=== PATIENT | male | born 1935 | race Caucasian/White ===

== ENCOUNTER → 2016-07-18 | Outpatient (CLI) | payer MEDICARE | END | disposition home or self-care (01) | LOC: GMAM 11:56 | PROVIDERS: ATTEND Family Medicine | DX: I48.0 Paroxysmal atrial fibrillation (principal); N40.0 Benign prostatic hyperplasia without lower urinary tract symptoms | CPT/HCPCS: 80162; 84439; 84443; 87086; 87088; 87186; G0103 ==

== ENCOUNTER 2016-07-30 13:20 | Day surgery (SDC) | payer MEDICARE ==
[2016-07-30 13:07] VITALS: BP 159/72; TEMP 97.6; O2SAT 95
[~2016-07-30 13:20] MED LIST: LIDOCAINE 1% 50 ML VIAL INJ ONE; NEOMYCIN-BACITRACIN-POLYMYXIN 0.9 GM UD TOP ONE; SODIUM BICARBONATE VIAL 50 MEQ/50 ML VIAL ONE
--- NOTE | 2016-07-30 13:35 | OP ---
DATE OF PROCEDURE: 07/30/16 PREOPERATIVE DIAGNOSIS: 1. Ulcerated, nonhealing lesion, left posterior ear. POSTOPERATIVE DIAGNOSIS: 1. Ulcerated, nonhealing lesion, left posterior ear. PROCEDURE: 1. Excision of ulcerated, nonhealing, left posterior ear. SURGEON: Thomas Bianchi MD ANESTHESIA: Local infiltration of 1% lidocaine with bicarb. INDICATION: The patient is a 80-year-old male who presented to my office with a lesion noticed approximately three weeks ago that had been bleeding behind his left ear. There is no known injury. He was treated with antibiotics without resolution. He was brought to the Surgical Suite today for excision of same after the risks, benefits and alternatives to the procedure were discussed and accepted. FINDINGS: The ulceration was approximately 1 cm. There was some mass effect anterior to the ulceration and the total tissue excised was approximately 2 by 1.5 cm. It was marked posterior and superiorly with sutures. PROCEDURE: The patient was brought to the Surgical Suite and placed in supine position with the head slightly elevated. The left ear and posterior tissue around the ear were prepped with Betadine paint and draped. The incision was marked with a marking pen. Infiltration with anesthesia was then obtained with 1% lidocaine. The skin was incised with a sharp knife and dissection of the tissue was continued with sharp dissection and electrocautery. The specimen was then removed, marked with sutures, and sent for pathologic evaluation. The wound was irrigated with lidocaine. Hemostasis was obtained with electrocautery and the wound bed was cauterized until a dark eschar was obtained. Hemostasis was noted to be adequate. The wound was then dressed with triple antibiotic ointment, a 2 by 2 and a Band-Aid. The patient tolerated the procedure well. Estimated blood loss was approximately 10 to 20 mL. All sponge, needle and instrument counts were corrected. #[id number] [facility]
== END 2016-07-30 13:30 | disposition home or self-care (01) ==
LOC: AMB 13:20
PROVIDERS: ATTEND Surgery
DX: C44.219 Basal cell carcinoma of skin of left ear and external auricular canal (principal); I10 Essential (primary) hypertension; I48.0 Paroxysmal atrial fibrillation; M81.0 Age-related osteoporosis without current pathological fracture; E11.9 Type 2 diabetes mellitus without complications; I50.9 Heart failure, unspecified; I73.9 Peripheral vascular disease, unspecified; N40.0 Benign prostatic hyperplasia without lower urinary tract symptoms; Z88.2 Allergy status to sulfonamides; Z88.8 Allergy status to other drugs, medicaments and biological substances; Z87.891 Personal history of nicotine dependence; Z95.0 Presence of cardiac pacemaker; Z79.899 Other long term (current) drug therapy

== ENCOUNTER → 2016-08-08 | Outpatient (CLI) | payer MEDICARE | END | disposition home or self-care (01) | LOC: GMA 13:49 | PROVIDERS: ATTEND Nurse Practitioner Family | DX: T81.89XA Other complications of procedures, not elsewhere classified, initial encounter (principal) ==

== ENCOUNTER 2016-11-11 07:41 | Emergency (ER) | payer MEDICARE ==
--- NOTE | 2016-11-11 07:53 | ED.PDOC ---
History of Present Illness - General Chief Complaint: General Stated Complaint: nausea/vomiting Time Seen by Provider: 11/11/16 07:50 Source: patient Exam Limitations: no limitations Additional Information: Akira Espinoza 81 y/o male stated that he had onset of multiple episodes of vomiting early this morning accompanied by pressure like headache and sob; called up ems and on arrival just feeling nauseated.Denies diarrhea ,chest pains ,blurry .vision. - History of Present Illness Timing/Duration: 1-3 hours Severity: moderate Improving Factors: nothing Worsening Factors: nothing Associated Symptoms: loss of appetite Allergies/Adverse Reactions: Allergies Hydrochlorothiazide Allergy (Verified 07/29/16 12:39) Lisinopril Allergy (Verified 07/29/16 12:39) Omeprazole [From Prilosec] Allergy (Verified 07/29/16 12:39) Paroxetine [From Paxil] Allergy (Verified 07/14/14 02:50) Rivaroxaban [From Xarelto] Allergy (Verified 07/29/16 12:39) Sitagliptin [From Januvia] Allergy (Verified 07/29/16 12:39) Sulfa Drugs Allergy (Verified 07/14/14 02:50) Terazosin Allergy (Verified 07/29/16 12:39) Home Medications: Ambulatory Orders Finasteride 10 mg PO BEDTIME 05/12/12 Furosemide [Lasix] 20 mg PO BID 05/12/12 Metformin HCl 500 mg PO QID 05/12/12 Potassium Chloride [Potassium Chloride ER] 10 meq PO DAILY 05/12/12 Tamsulosin HCl 0.4 mg PO DAILY 05/12/12 Digoxin 0.125 mg PO BID 10/05/12 Cholecalciferol [Vitamin D3] 1,000 unit PO DAILY 05/23/15 Cranberry-Vitamin C-Vitamin E [Cranberry Plus Vitamin C] 1 cap PO DAILY HYDROcodone 10MG/APAP 325MG [[place] 10/325] 1 tab PO Q4H PRN 05/23/15 Pregabalin [Lyrica] 50 mg PO BEDTIME 11/11/16 Prochlorperazine Tab [Compazine Tab] 10 mg PO TID PRN #14 tab 11/11/16 Review of Systems - Review of Systems Constitutional: States: no symptoms reported EENTM: States: no symptoms reported Respiratory: States: see HPI, short of breath Cardiology: States: no symptoms reported Gastrointestinal/Abdominal: States: see HPI Genitourinary: States: no symptoms reported Musculoskeletal: States: no symptoms reported Skin: States: no symptoms reported Neurological: States: see HPI, numbness Endocrine: States: no symptoms reported Hematologic/Lymphatic: States: no symptoms reported Past Medical History (General) - Patient Medical History Hx Seizures: No Hx Stroke: No Hx Dementia: No Hx Asthma: No Hx of COPD: Yes - Lung CA Hx Cardiac Disorders: No Hx Congestive Heart Failure: No Hx Pacemaker: Yes Hx Hypertension: No Hx Thyroid Disease: No Hx Diabetes: Yes Hx Gastroesophageal Reflux: No Hx Renal Disease: No Hx Cancer: Yes - lung Hx of HIV: No Hx Hepatitis C: No Hx MRSA: No Hx Other PMH: Yes - pe Hx Other - free text: Rectal bleeding Surgical History: appendectomy, other - hip,back Other Surgeries:: colonoscopy/egd - Vaccination History Hx Tetanus, Diphtheria Vaccination: No Hx Influenza Vaccination: Yes Hx Pneumococcal Vaccination: Yes - Social History Hx Tobacco Use: No Hx Chewing Tobacco Use: No Hx Alcohol Use: No Hx Substance Use: No Hx Substance Use Treatment: No Hx Depression: No Hx Physical Abuse: No Hx Emotional Abuse: No Hx Suspected Abuse: No - Activities of Daily Living Patient Lives Alone: No - Grooming Ability: Independent Eating (Feeding) Ability: Independent Toileting Ability: Independent - Female History Patient : No Family Medical History - Family History Father Family History: No Known Living Status: Hx Family Hypertension: Yes - mother Hx Family Diabetes: Yes - several family member Physical Exam - Physical Exam General Appearance: Alert, No apparent distress Eye Exam: bilateral normal Ears, Nose, Throat: hearing grossly normal, normal ENT inspection, normal pharynx Neck: non-tender, full range of motion, supple, normal inspection Respiratory: chest non-tender, lungs clear, no respiratory distress Cardiovascular/Chest: normal peripheral pulses, no murmur, irregularly irregular Peripheral Pulses: radial,right: 2+, radial,left: 2+ Gastrointestinal/Abdominal: normal bowel sounds, non tender, soft, no organomegaly Back Exam: normal inspection, no CVA tenderness, no vertebral tenderness Extremity: normal range of motion, non-tender, pedal edema - 1+ Neurologic: no motor/sensory deficits, alert, normal mood/affect, oriented x 3 Skin Exam: normal color, warm/dry Lymphatic: no adenopathy Progress - Progress Progress: 11/11/16 08:30 Vital Signs - 8 hr 11/11/16 07:41 Temperature 100.1 F H Pulse Rate [ 93 H Left Radial] Respiratory 20 Rate Blood Pressure 146/87 [Left Arm] O2 Sat by Pulse 96 Oximetry 11/11/16 11:30 No further nausea/vomiting still with headache,head ct-no acute abnormalities; stable vital signs - Results/Orders Results/Orders: 11/11/16 08:00 EKG STAT 11/11/16 10:04 TROPONIN-I Stat Laboratory Results WBC 8.5 K/mm3 (4.8-10.8) 11/11/16 07:51 RBC 5.14 M/mm3 (4.70-6.10) 11/11/16 07:51 Hgb 14.4 gm/dL (14.0-18.0) 11/11/16 07:51 Hct 43.8 % (42.0-52.0) 11/11/16 07:51 MCV 85.3 fl (80.0-94.0) 11/11/16 07:51 MCH 28.0 pg (27.0-31.0) 11/11/16 07:51 MCHC 32.8 g/dL (33.0-37.0) L 11/11/16 07:51 RDW 16.1 % (11.5-14.5) H 11/11/16 07:51 Plt Count 150 K/mm3 (130-400) 11/11/16 07:51 MPV 7.4 fl (7.40-10.4) 11/11/16 07:51 Absolute Neuts (auto) 7.80 K/uL (1.8-6.8) H 11/11/16 07:51 Absolute Lymphs (auto) 0.40 K/uL (1.0-3.4) L 11/11/16 07:51 Absolute Monos (auto) 0.30 K/uL (0.2-0.8) 11/11/16 07:51 Absolute Eos (auto) 0.00 K/uL (0.0-0.4) 11/11/16 07:51 Absolute Basos (auto) 0.00 K/uL (0.0-0.1) 11/11/16 07:51 Neutrophils % 92.0 % (42.0-78.0) H 11/11/16 07:51 Lymphocytes % 4.3 % (20.0-50.0) L 11/11/16 07:51 Monocytes % 3.5 % (2.0-9.0) 11/11/16 07:51 Eosinophils % 0.1 % (1.0-5.0) L 11/11/16 07:51 Basophils % 0.1 % (0.0-2.0) 11/11/16 07:51 PT 13.9 SECONDS (9.4-12.5) H 11/11/16 07:51 INR 1.230 11/11/16 07:51 D-Dimer, Quantitative < 230 ng/mL (0-230) 11/11/16 07:30 Sodium 136 mmol/L (135-145) 11/11/16 07:51 Potassium 4.2 mmol/L (3.6-5.0) 11/11/16 07:51 Chloride 97 mmol/L (101-111) L 11/11/16 07:51 Carbon Dioxide 29 mmol/L (21-31) 11/11/16 07:51 Anion Gap 14.2 (12-18) 11/11/16 07:51 BUN 22 mg/dL (7-18) H 11/11/16 07:51 Creatinine 1.51 mg/dL (0.6-1.3) H 11/11/16 07:51 BUN/Creatinine Ratio 14.6 (10-20) 11/11/16 07:51 Random Glucose 176 mg/dL (70-105) H 11/11/16 07:51 Serum Osmolality 279.6 mOsm/L (275-295) 11/11/16 07:51 Calcium 9.3 mg/dL (8.4-10.2) 11/11/16 07:51 Total Bilirubin 1.1 mg/dL (0.2-1.0) H 11/11/16 07:51 AST 21 IU/L (10-42) 11/11/16 07:51 ALT 12 IU/L (10-60) 11/11/16 07:51 Alkaline Phosphatase 64 IU/L (42-121) 11/11/16 07:51 Creatine Kinase 29 IU/L (38-174) L 11/11/16 07:51 CK-MB (CK-2) 1.1 ng/mL (0.0-4.4) 11/11/16 07:51 CK-MB (CK-2) % Not Reportable 11/11/16 07:51 Troponin I 0.03 ng/mL (0.01-0.05) 11/11/16 07:51 B-Natriuretic Peptide 421.0 pg/ml (0-100) H* 11/11/16 07:30 Serum Total Protein 8.8 gm/dL (6.4-8.2) H 11/11/16 07:51 Albumin 4.7 g/dl (3.2-5.5) 11/11/16 07:51 Globulin 4.1 gm/dL (2.3-3.5) H 11/11/16 07:51 Albumin/Globulin Ratio 1.1 (1.1-1.9) 11/11/16 07:51 Lipase 17 U/L (22-51) L 11/11/16 07:52 Urine Color Yellow (Yellow) 11/11/16 08:38 Urine Appearance Clear (Clear) 11/11/16 08:38 Urine pH 8.5 (4.5-7.8) H 11/11/16 08:38 Ur Specific [place] 1.015 (1.005-1.030) 11/11/16 08:38 Urine Protein >=300 mg/dL H 11/11/16 08:38 Urine Glucose (UA) Negative mg/dL (Negative) 11/11/16 08:38 Urine Ketones Negative mg/dL (NEGATIVE) 11/11/16 08:38 Urine Blood Small (Negative) H 11/11/16 08:38 Urine Nitrite Negative 11/11/16 08:38 Urine Bilirubin Negative (NEGATIVE) 11/11/16 08:38 Urine Urobilinogen 0.2 mg/dL (0.2-1.0) 11/11/16 08:38 Ur Leukocyte Esterase Negative (Negative) 11/11/16 08:38 Urine RBC 3-5 /hpf H 11/11/16 08:38 Urine WBC 0 /hpf 11/11/16 08:38 Ur Epithelial Cells 3-5 /hpf 11/11/16 08:38 Urine Bacteria 0 06/13/17 08:38 Digoxin 2.0 ng/mL (1.0-2.0) 11/11/16 08:30 Abnormal Lab Results 11/11/16 11/11/16 11/11/16 07:30 07:51 07:51 MCHC 32.8 L RDW 16.1 H Absolute Neuts (auto) 7.80 H Absolute Lymphs (auto) 0.40 L Neutrophils % 92.0 H Lymphocytes % 4.3 L Eosinophils % 0.1 L PT Chloride 97 L BUN 22 H Creatinine 1.51 H Random Glucose 176 H Total Bilirubin 1.1 H Creatine Kinase 29 L B-Natriuretic Peptide 421.0 H* Serum Total Protein 8.8 H Globulin 4.1 H Lipase Urine pH Urine Protein Urine Blood Urine RBC 11/11/16 11/11/16 11/11/16 07:51 07:52 08:38 MCHC RDW Absolute Neuts (auto) Absolute Lymphs (auto) Neutrophils % Lymphocytes % Eosinophils % PT 13.9 H Chloride BUN Creatinine Random Glucose Total Bilirubin Creatine Kinase B-Natriuretic Peptide Serum Total Protein Globulin Lipase 17 L Urine pH 8.5 H Urine Protein >=300 H Urine Blood Small H Urine RBC 3-5 H Troponin #2 normal - EKG/XRAY/CT EKG: Atrial, Fibrillation Comments: ventricular rate- 83;W/pvc XRAY: abdomen - non specific CT Ordered: Yes - head-no acute abnormalities/radiologist Departure - Departure Clinical Impression: Nausea and vomiting in adult, Chest pain of unknown etiology, Renal insufficiency, mild Headache Qualifiers: Headache type: unspecified Headache chronicity pattern: unspecified pattern Intractability: not intractable Qualified Code(s): R51 - Headache Time of Disposition: 11:30 Disposition: Discharge to Home or Self Care Condition: Good Diet: low fat, low cholesterol, other - small frequent meal;avoid greasy,spicy and dairy foods until better Referrals: Pedro Frazier MD [Primary Care Provider] - 1-2 Weeks Prescriptions: Prochlorperazine Tab [Compazine Tab] 10 mg PO TID PRN #14 tab PRN Reason: Nausea Home Medications: Ambulatory Orders Finasteride 10 mg PO BEDTIME 05/12/12 Furosemide [Lasix] 20 mg PO BID 05/12/12 Metformin HCl 500 mg PO QID 05/12/12 Potassium Chloride [Potassium Chloride ER] 10 meq PO DAILY 05/12/12 Tamsulosin HCl 0.4 mg PO DAILY 05/12/12 Digoxin 0.125 mg PO BID 10/05/12 Cholecalciferol [Vitamin D3] 1,000 unit PO DAILY 05/23/15 Cranberry-Vitamin C-Vitamin E [Cranberry Plus Vitamin C] 1 cap PO DAILY HYDROcodone 10MG/APAP 325MG [[place] 10/325] 1 tab PO Q4H PRN 05/23/15 Pregabalin [Lyrica] 50 mg PO BEDTIME 11/11/16 Prochlorperazine Tab [Compazine Tab] 10 mg PO TID PRN #14 tab 11/11/16 Additional Instructions: RETURN TO EMERGENCY ROOM NEEDED;FOLLOW UP WITH YOUR MD 11/17/2016 call for appointment as needed
[2016-11-11] MEDS ORDERED: KETOROLAC TROMETHAMINE INJ 30 MG/ML VIAL IV ONE (08:11)
[2016-11-11] MEDS ORDERED: ONDANSETRON INJ 4 MG/2 ML VIAL IV ONE (08:11)
--- NOTE | 2016-11-11 08:38 | RAD ---
EXAM DESCRIPTION: Abdomen Flat Upright CLINICAL HISTORY: 81 years Male, nausea IMPRESSION: Nonspecific small bowel gas pattern. No free air noted. Compression screw is seen within the right proximal femur. Electronically signed by: Jack Pike MD 11/11/2016 8:38 AM CDT
--- NOTE | 2016-11-11 08:39 | RAD ---
EXAM DESCRIPTION: Chest,1 View CLINICAL HISTORY: 81 years Male, nausea IMPRESSION: Cardiomegaly. Pacing device noted. Chronic bronchopulmonary changes seen within bilateral lung bases with infiltrates versus small right pleural effusion. Likely bronchiectasis seen within the right upper lobe. Electronically signed by: Jack Pike MD 11/11/2016 8:39 AM CDT
--- NOTE | 2016-11-11 08:48 | CT ---
EXAM DESCRIPTION: Head CLINICAL HISTORY: Acute onset of a dysmorphic COMPARISON: None available TECHNIQUE: Multiple axial images of the head without contrast . This exam was performed according to our department minimal dose optimization program which includes automated exposure control, adjustment of mA and/or kV according to patient size and/or use of iterative reconstructed techniques. FINDINGS: There is no CT evidence of intracranial hemorrhage, mass effect, or acute cortical infarction. Involutional changes noted resulting in prominence of the sulci and ventricles. Minimal periventricular white matter disease is noted. There are no abnormal extra-axial fluid collections. Vascular structures are unremarkable. There is no acute calvarial defect. The visualized paranasal sinuses and the mastoids are clear. IMPRESSION: 1. No CT evidence of an acute intracranial abnormality. 2. Involutional changes noted on today's exam along with mild periventricular white matter disease. Electronically signed by: Jack Pike MD 11/11/2016 8:47 AM CDT
[2016-11-11] MEDS ORDERED: cefTRIAXone SODIUM 1 GM in SODIUM CHL 0.9% 50ML MIN-BAG+ 50 ML IVPB ONE (10:06)
[2016-11-11] MEDS ORDERED: cefTRIAXone SODIUM 1 GM VIAL ONE (10:37)
[2016-11-11] MEDS ORDERED: SODIUM CHL 0.9% 50ML MIN-BAG+ 50 ML IVPB ONE (10:37)
[2016-11-11] MEDS ORDERED: PROCHLORPERAZINE INJ 10 MG/2 ML VIAL IV ONE (11:18)
[2016-11-11] MEDS ORDERED: DEXAMETHASONE INJ 4 MG/ML VIAL IV ONE (11:19)
[2016-11-11] MEDS ORDERED: ACETAMINOPHEN W/COD #3 TAB 1 EA TAB PO ONE (11:20)
[2016-11-11 12:08] VITALS: BP 113/73; TEMP 100.2; O2SAT 99
== END 2016-11-11 11:58 | disposition home or self-care (01) ==
LOC: ER 07:41
DX: R11.2 Nausea with vomiting, unspecified (principal); R51 Headache; N28.9 Disorder of kidney and ureter, unspecified; I48.91 Unspecified atrial fibrillation; E11.9 Type 2 diabetes mellitus without complications; Z95.0 Presence of cardiac pacemaker; Z85.118 Personal history of other malignant neoplasm of bronchus and lung; Z79.899 Other long term (current) drug therapy; Z88.2 Allergy status to sulfonamides; Z88.8 Allergy status to other drugs, medicaments and biological substances
CPT/HCPCS: 36415; 70450; 71010; 74010; 80053; 80162; 81001; 82550; 82553; 83690; 83880; 84484; 85025; 85379; 85610; 93005; J0696; J0780; J1100; J1885; J2405; J7050

== ENCOUNTER → 2016-11-14 | Outpatient (CLI) | payer MEDICARE | END | disposition home or self-care (01) | LOC: GMAM 10:13 | PROVIDERS: ATTEND Family Medicine | DX: Z79.899 Other long term (current) drug therapy (principal); E55.9 Vitamin D deficiency, unspecified ==

== ENCOUNTER → 2016-11-27 | Outpatient (CLI) | payer MEDICARE | END | disposition home or self-care (01) | LOC: GMAM 11:29 | PROVIDERS: ATTEND Family Medicine | DX: Z79.899 Other long term (current) drug therapy (principal) ==

== ENCOUNTER → 2016-12-05 | Outpatient (CLI) | payer MEDICARE ==
--- NOTE | 2016-12-05 13:29 | US ---
EXAM DESCRIPTION: Venous Doppler sonogram left lower extremity CLINICAL HISTORY: Left lower extremity swelling. Assess for deep vein thrombosis COMPARISON: [None Available.] TECHNIQUE: Venous Doppler left lower extremity deep venous system from the common femoral vein to the calf veins FINDINGS: Normal venous flow with color Doppler. Normal compressibility. Normal augmentation of flow with compression maneuvers IMPRESSION: No deep vein thrombosis left lower extremity Electronically signed by: Pedro Dimas MD 12/05/2016 1:27 PM CDT
--- NOTE | 2016-12-05 13:36 | CT ---
EXAM DESCRIPTION: CT left foot and ankle CLINICAL HISTORY: Foot and ankle pain COMPARISON: None Available. TECHNIQUE: Noncontrast spiral CT with reformatted images. This exam was performed according to our departmental dose-optimization program, which includes automated exposure control, adjustment of the mA and/or kV according to patient size and/or use of iterative reconstruction technique. FINDINGS: Diffuse subcutaneous soft tissue edema and swelling, nonspecific No tenosynovitis or suspicion of acute tendon tear. Assess naviculare. Small os peroneum. No fracture or osteochondral lesion at the ankle. No advanced osteoarthritis ankle or subtalar. No osteochondral lesion subtalar, calcaneocuboid or talonavicular Naviculocuneiform arthrosis, dorsal navicular at the middle and lateral cuneiforms. Osteoarthritis of the dorsal medial aspect first tarsometatarsal joint, throughout the second and third tarsometatarsal joints mostly dorsally with a couple of tiny subchondral cysts. No metatarsal or phalangeal fracture. 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 Joint space narrowing with small marginal osteophytes. Large subchondral cyst in the metatarsal head about 8 mm Moderate-sized well-corticated plantar calcaneal spur with chronic middle bundle plantar fascial thickening. A focal dystrophic calcification in the mid plantar fascia. Calcaneal enthesophyte at the distal Achilles tendon insertion. 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
== END | disposition home or self-care (01) ==
LOC: RAD 12:39
PROVIDERS: ATTEND Family Medicine
DX: R60.9 Edema, unspecified (principal); M79.672 Pain in left foot

== ENCOUNTER → 2017-02-12 | Outpatient (CLI) | payer MEDICARE | END | disposition home or self-care (01) | LOC: GMAM 10:49 | PROVIDERS: ATTEND Family Medicine | DX: Z79.899 Other long term (current) drug therapy (principal); E55.9 Vitamin D deficiency, unspecified ==

== ENCOUNTER → 2017-02-16 | Outpatient (CLI) | payer MEDICARE | END | disposition home or self-care (01) | LOC: GMA 10:33 | PROVIDERS: ATTEND Physician Assistant | DX: Z79.899 Other long term (current) drug therapy (principal); R60.0 Localized edema; R06.02 Shortness of breath ==

== ENCOUNTER → 2017-03-12 | Outpatient (CLI) | payer MEDICARE | END | disposition home or self-care (01) | LOC: GMAM 10:41 | PROVIDERS: ATTEND Family Medicine | DX: R94.6 Abnormal results of thyroid function studies (principal) ==

== ENCOUNTER 2017-04-01 11:15 | Inpatient (IN) | payer MEDICARE ==
--- NOTE | 2017-04-01 13:28 | CT ---
EXAM DESCRIPTION: Abdomen/Pelvis w/wo Contrast CLINICAL HISTORY: 81-year-old, male, generalized abdominal pain. COMPARISON: Abdominal radiograph dated November 11, 2016 TECHNIQUE: CT of the abdomen and pelvis was with and without intravenous contrast. Multiple axial images and multiplanar reconstructions were generated. This exam was performed according to our departmental dose-optimization program, which includes automated exposure control, adjustment of the mA and/or kV according to patient size and/or use of iterative reconstruction technique. FINDINGS: Lung bases: There is a well marginated cyst measuring 8.8 x 4.7 x 2.4 cm (AP, W, CC) in the left lung base. Vasculature are seen along the peripheral aspect of the cystic lesion. Heart size is enlarged. A single cardiac pacemaker lead is present with distal tip projecting in the right ventricle. Solid organs: Multiple subcentimeter cystic lesions are seen throughout the liver. These are too small to adequately characterize, but are likely hepatic cysts. The the spleen and pancreas are unremarkable. The gallbladder is distended with gallbladder wall thickening and pericholecystic fluid and surrounding fatty stranding, concerning for acute cholecystitis. The common bile duct is mildly distended measuring 5 mm in diameter. Several cortical cysts are present bilaterally. Otherwise, bilateral kidneys show symmetric enhancement. No evidence for hydronephrosis. Bilateral ureters are decompressed. Gastrointestinal: Gastrointestinal tract show no evidence of obstruction. Numerous diverticuli demonstrated in the sigmoid colon and descending colon. There is some early surrounding fatty stranding adjacent the sigmoid colon diverticuli, concerning for early diverticulitis. This inflamed portion of the sigmoid colon situates above the urinary bladder dome. Appendix is not visualized. Small free fluid demonstrated along the right colic gutter. Vascular: Calcific atherosclerosis of the abdominal aorta and its major branches. No evidence for aneurysmal dilatation. Lymph nodes: Several punctate subcentimeter retroperitoneal lymph nodes are present, none of which are significantly enlarged by CT size criteria. These are nonspecific and are likely reactive nodes. Musculoskeletal and soft tissues: No destructive osseous lesions are present. Degenerative changes noted of the thoracolumbar spine. Compression screw and plate in the proximal right femur. Urinary bladder and pelvic organs: The urinary bladder is normal. IMPRESSION: 1. Significantly distended gallbladder with wall thickening and pericholecystic fluid, concerning for acute cholecystitis. Small amount of free fluid is present along the right pericolic gutter. Surgical consult is recommended. 2. Sigmoid diverticuli with surrounding fat stranding, concerning for acute diverticulitis. Findings were discovered at 1315 hours and discussed via telephone with Ms. Elisa Gregg RN, from Dr. Verna Ledesma's office. Dr. Ldeesma was not immediately available to take the phone call. Electronically signed by: Immanuel Rosales MD 04/01/2017 1:27 PM CDT
[2017-04-01] MEDS ORDERED: levoFLOXacin 500MG IV 500 MG in PREMIX BAG 1 BAG IVPB SCH ×2 (16:30→18:00)
[2017-04-01] MEDS ORDERED: SODIUM CHLORIDE 0.9% (FLUSH) 10 ML SYG IV PRN (16:36)
[2017-04-01] MEDS ORDERED: ALBUTEROL SULFATE 2.5 MG/3 ML VIAL NEB PRN (16:38)
--- NOTE | 2017-04-01 16:40 | HP ---
SUPERVISING PHYSICIAN: Jaguar Núñez M.D. CHIEF COMPLAINT: Abdominal pain with nausea and vomiting. HISTORY OF PRESENT ILLNESS: This is a 81 year-old male patient who has been having some right upper quadrant abdominal pain for several days. His abdomen was very tender to palpation and he actually had some vomiting times 3 yesterday and early this morning. He went to [facility] and saw LOYDA Bergman, and lab was done at that time as well as a CT of the abdomen. His WBCs were 11.1, hemoglobin 12.4, hematocrit 38.1, neutrophils 84.6% with sodium 135 and chloride 99, potassium 3.7, carbon dioxide 25, glucose 145. He also had a urinary tract infection on the urine at [facility]. He was sent for a CT scan. CT of the abdomen and pelvis per radiology interpretation shows significantly distended gallbladder with wall thickening and pericholecystic fluid concerning for acute cholecystitis, small amount of free fluid is present along the right pericolic gutter. Surgical consultation is recommended. Sigmoid diverticula with surrounding fat stranding concerning for acute diverticulitis. Dr. Frazier , the patient's primary care physician, called and asked to be directly admitted. He also called Dr. Bianchi and discussed his case with him. He was sent to the hospital for direct admission. Dr. Bianchi was consulted. Gallbladder ultrasound was performed and per radiology interpretation shows sonographic findings suggesting cholecystitis with an enlarged fatty liver. PAST MEDICAL HISTORY: 1. Acute renal insufficiency. 2. Benign prostatic hypertrophy. 3. Cervical neuropathy. 4. Chronic obstructive pulmonary disease. 5. History of lung cancer. 6. Hypertension. 7. Hyperlipidemia. 8. Hypothyroidism. 9. Osteoarthritis. 10. Osteoporosis. 11. Paroxysmal atrial fibrillation. 12. Supraventricular tachycardia. 13. Diabetes mellitus type 2. 14. Congestive heart failure with estimated ejection fraction of 35% from echo in 2016. 15. Diverticular abscess. PAST SURGICAL HISTORY: 1. Open reduction and internal fixation of right hip. 2. Back surgeries times 2. 3. Pacemaker placement. 4. Appendectomy as a child. ALLERGIES: PRILOSEC, SULFA, GABAPENTIN, JANUVIA, LISINOPRIL HYDROCHLOROTHIAZIDE , TERAZOSIN AND XARELTO. SOCIAL HISTORY: He is retired. He is . He has 2 children. He has a previous history of cigarette smoking and he quit in 1999. He also has a previous history of alcohol use but he quit several years ago. Denies any illicit drug use. REVIEW OF SYSTEMS: GENERAL: Positive for fatigue and negative for fever or weight changes. HEENT: Negative for ear pain, vision changes, sinus symptoms or sore throat. RESPIRATORY: Negative for coughing, wheezing or shortness of breath. CARDIAC: Negative for chest pain, tachycardia or palpitations. GASTROINTESTINAL: As per history of present illness. GENITOURINARY: Positive for polyuria. Negative for dysuria or hematuria. NEUROLOGIC: Negative for headaches, dizziness or seizures. PHYSICAL EXAMINATION: VITAL SIGNS: He is afebrile, heart rate 83, blood pressure 103/61, respiratory rate 16, O2 sat 93% on room air. GENERAL: This is a 81 year-old male patient who is lying in his hospital bed. He is in no acute distress. HEENT: Normocephalic and atraumatic. Oropharynx is clear. Oral mucous membranes are moist. NECK: Supple without mass. There is no jugular venous distention. RESPIRATORY: Essentially clear to auscultation bilaterally, somewhat diminished at the bases. CARDIOVASCULAR: Slightly irregular rhythm, regular rate. ABDOMEN: Soft. He is diffusely tender especially to the right upper quadrant and the epigastric region. There is no rebound tenderness. Bowel sounds are positive. EXTREMITIES: No cyanosis, clubbing or edema. NEUROLOGIC: He is awake, alert and oriented times three. LABORATORY: Labs and films are as per the history of present illness. ASSESSMENT: 1. Acute cholecystitis. 2. Right upper quadrant abdominal pain most likely secondary to #1. 3. History of diverticular disease and CT concerns for diverticulitis. 4. Congestive heart failure with an ejection fraction of 35% from last echo in 2016. 5. History of atrial fibrillation. 6. History of lung cancer. 7. Type 2 diabetes mellitus. 8. Chronic obstructive pulmonary disease. 9. Benign prostatic hypertrophy. 10. History of cardiac pacemaker insertion. 11. Osteoarthritis. 12. Hyperlipidemia. 13. Hypothyroidism. PLAN: We will admit the patient to the hospital. He will be NPO. Dr. Bianchi has been consulted. I have also done Accu-Cheks with sliding scale insulin. I will repeat his labs in the morning. Also do another abdominal x-ray. Will get a urine culture as well as blood cultures. He has been started on Flagyl and Levaquin. He has been placed on the cardiac technologist. He has signed the paperwork for a DNR. We will defer surgical issues to Dr. Bianchi. We will continue to monitor the patient closely and follow as needed. Dr. Núñez is the collaborating physician available for consultation. #[id number] [facility]
--- NOTE | 2017-04-01 16:49 | US ---
EXAM DESCRIPTION: Gall Bladder CLINICAL HISTORY: 81 years Male cholecystitis COMPARISON: CT abdomen and pelvis study from earlier in the day. TECHNIQUE: Transabdominal grayscale imaging performed to evaluate the right upper quadrant. FINDINGS: The gallbladder is distended with gallstones in the gallbladder with the largest measuring 1.15 cm. The gallbladder wall is thickened to 0.75 cm. The sonographic Kaur's sign is reported as positive. The common bile duct measures 0.56 cm. The liver measures 19.6 cm in length and appears echogenic. There are multiple hypoechoic lesions in the liver consistent with cysts. The largest measures 1.1 x 0.8 x 0.9 cm. The pancreas is not well-visualized. The aorta, IVC and right kidney were not specifically imaged. IMPRESSION: Sonographic findings suggesting cholecystitis. Enlarged fatty liver. Electronically signed by: Jesus Rosales MD 04/01/2017 4:48 PM CDT
[2017-04-01] MEDS ORDERED: DEXTROSE 50% 25 GM/50 ML SYG IV PRN (16:54)
[2017-04-01] MEDS ORDERED: GLUCAGON INJ 1 MG VIAL SUBCU PRN (16:54)
[2017-04-01] MEDS ORDERED: FAMOTIDINE IV PREMIX 20 MG in PREMIX BAG 1 BAG IVPB SCH (17:00)
[2017-04-01] MEDS ORDERED: IV SET AND CAP CHANGE INJ INJ SCH (17:00)
[2017-04-01] MEDS ORDERED: metroNIDAZOLE IV PREMIX 500MG 100 ML IVPB ONE (17:30)
--- NOTE | 2017-04-01 17:36 | CONS ---
DATE OF CONSULTATION: 04/01/17 HISTORY OF PRESENT ILLNESS: The patient is a 81 year-old male that is well known to me for multiple skin malignancies and I also cared for him when he had a diverticular abscess 8 years ago approximately. He developed nausea and vomiting last Alonzo night after eating oatmeal with butter and toast and butter. He threw up 3 times. He has had some abdominal pain but no fever or chills. He has noted no change in his bowel habits. He presented to Dr. Frazier who obtained a CT scan which revealed consistent with inflammation involving his sigmoid diverticular disease and his gallbladder. The patient is a diabetic. He has a history of congestive heart failure, chronic obstructive pulmonary disease and atrial fibrillation. We are uncertain how long it has been since he had his last colonoscopy. Laboratory examination revealed his white blood cell count was mildly elevated at 11 with 84% neutrophils. Liver function tests were within normal limits other than a total bilirubin of 1.2. He was admitted directly to the floor by Dr. Frazier and the hospitalist service. PAST MEDICAL HISTORY: 1. Significant history of heart disease and lung disease. 2. He has had multiple malignancies. 3. Diverticular abscess which was treated conservatively. There is no history of hepatitis or jaundice. CURRENT MEDICATIONS: Medication list is quite long. These are both in his medical record. ALLERGIES: HE HAS MULTIPLE DRUG ALLERGIES. THESE ARE BOTH IN HIS MEDICAL RECORD. FAMILY HISTORY: Positive for carcinoma of the colon both in his mother and his brother. There is also diabetes. SOCIAL HISTORY: The patient is retired. He lives here in [place] with his . He quit smoking after many years in 1999. He drinks minimally. REVIEW OF SYSTEMS: The patient specifically has noted no recent blood per rectum. No change in his bowel habits. No dark urine. No fever or chills. Otherwise his review of systems is unremarkable as associated with this episode of hospitalization. PHYSICAL EXAMINATION: VITAL SIGNS: Afebrile and normotensive. GENERAL: The patient is awake, alert, cooperative and in minimal acute distress. HEENT: Reveals the sclera to be nonicteric. Mucous membranes are moist. NECK: Without adenopathy. BACK: Without CVA tenderness. CHEST: He has equal breath sounds that are distant. HEART: Irregular rhythm. ABDOMEN: Soft, distended. There is tenderness in the right upper quadrant with some guarding. Bowel sounds are decreased. There is no tenderness in the left lower quadrant. No masses palpated. RECTAL: Examination is deferred. EXTREMITIES: Without clubbing, cyanosis or edema. LABORATORY: As noted, revealed a white count of 11,000 with 84% neutrophils, hemoglobin 12.4, 174,000 platelets. Potassium 3.7, creatinine is 1.28, glucose 145. Liver functions were all within normal limits other than the bilirubin of 1.2. Sodium 134. RADIOLOGY: CT scan was consistent with acute cholecystitis and cholelithiasis. There is fatty stranding adjacent to the sigmoid colon consistent with early diverticulitis. This is sitting on the urinary dome. Ultrasound of the gallbladder revealed the liver consistent with fatty infiltration of the liver and multiple stones, thickening of the gallbladder wall, pericholecystic fluid all consistent with acute cholecystitis. PLAN: The plan is to cover the patient with Levaquin and Flagyl treating both cholecystitis and possible diverticulitis. Await the results of the urinary culture and follow the patient expectantly due to his underlying health issues, timing of surgical intervention may be complicated and is pending at this time. #[id number] [facility]
[2017-04-01] MEDS: metroNIDAZOLE IV PREMIX 500MG 500 MG in PREMIX BAG 1 BAG IVPB SCH (17:50)
[2017-04-01] MEDS: KCL 20MEQ/D5NS 1,000 ML IVS PRN (17:51)
[2017-04-01] MEDS: INSULIN LISPRO 100 UNITS/ML PEN SUBCU SCH (18:34)
[2017-04-01] MEDS ORDERED: levoFLOXacin 500MG IV 100 ML IVPB ONE (19:11)
[2017-04-01] MEDS: levoFLOXacin 500MG IV 500 MG in PREMIX BAG 1 BAG IVPB SCH (19:32)
[2017-04-01] MEDS ORDERED: FAMOTIDINE IV PREMIX 50 ML IVPB ONE (19:49)
[2017-04-01] MEDS: ALBUTEROL SULFATE 2.5 MG/3 ML VIAL NEB SCH (19:50)
[2017-04-01] MEDS: HYDROmorphone HCL INJ 2 MG/ML VIAL IV PRN (20:42)
[2017-04-01] MEDS: FAMOTIDINE IV PREMIX 20 MG in PREMIX BAG 1 BAG IVPB SCH (20:50)
[2017-04-01] MEDS: DIGOXIN 0.125 MG TAB PO SCH (20:50)
[2017-04-02] MEDS ORDERED: metroNIDAZOLE IV PREMIX 500MG 100 ML IVPB ONE ×3 (00:13→16:43)
[2017-04-02] MEDS: INSULIN LISPRO 100 UNITS/ML PEN SUBCU SCH ×4 (00:21→21:06)
[2017-04-02] MEDS: HYDROmorphone HCL INJ 2 MG/ML VIAL IV PRN ×3 (00:25→23:21)
[2017-04-02] MEDS: metroNIDAZOLE IV PREMIX 500MG 500 MG in PREMIX BAG 1 BAG IVPB SCH ×3 (00:28→16:50)
[2017-04-02] MEDS ORDERED: KCL 20MEQ/D5 1/2NS 0 ML IVS ONE (03:53)
[2017-04-02] MEDS: KCL 20MEQ/D5NS 1,000 ML IVS PRN ×3 (03:57→23:27)
[2017-04-02] MEDS: ALBUTEROL SULFATE 2.5 MG/3 ML VIAL NEB SCH ×4 (07:28→20:15)
[2017-04-02] MEDS ORDERED: FAMOTIDINE IV PREMIX 50 ML IVPB ONE ×2 (08:36→20:57)
[2017-04-02] MEDS: DIGOXIN 0.125 MG TAB PO SCH ×2 (08:41→21:03)
--- NOTE | 2017-04-02 08:48 | RAD ---
EXAM DESCRIPTION: Chest,1 View CLINICAL HISTORY: 81 years Male, copd COMPARISON: November 11, 2016 TECHNIQUE: AP portable chest. FINDINGS: Chronic findings of advanced interstitial fibrosis are present similar to the previous. No confluent parenchymal consolidation. Mild cardiomegaly with at least mild vascular congestion not as prominent as the previous radiograph. Unipolar pacer unchanged since previous IMPRESSION: Cardiomegaly with vascular congestion Advanced chronic interstitial fibrosis Electronically signed by: Ishan Emanuel MD 04/02/2017 8:47 AM CDT
--- NOTE | 2017-04-02 08:51 | RAD ---
EXAM DESCRIPTION: Abdomen Flat Upright CLINICAL HISTORY: 81 years Male, abd pain COMPARISON: November 11, 2016 and April 01, 2017 FINDINGS: Supine and upright views of the abdomen show prominent fullness in the right upper quadrant. Correlating this with the CT from yesterday shows that the liver is prominent in size. The dilated inflamed gallbladder noted on the CT scan may be contributing. Bowel gas pattern unremarkable. Contrast media in the urinary bladder from the previous CT scan. IMPRESSION: Hepatomegaly/fullness right upper quadrant Electronically signed by: Ishan Emanuel MD 04/02/2017 8:49 AM CDT
[2017-04-02] MEDS: FAMOTIDINE IV PREMIX 20 MG in PREMIX BAG 1 BAG IVPB SCH ×2 (09:57→21:04)
[2017-04-02] MEDS ORDERED: MAGNESIUM HYDROXIDE 30 ML UD PO ONE (11:25)
--- NOTE | 2017-04-02 17:32 | PN ---
DATE: 04/02/17 SUPERVISING PHYSICIAN: Jagura Núñez M.D. SUBJECTIVE: The patient is sitting on the side of the bed. He has just had a large bowel movement. He no longer has any complaints of abdominal pain, chest pain, nausea or vomiting. OBJECTIVE: VITAL SIGNS: He is afebrile, heart rate 83, blood pressure 148/70, respiratory rate 16, O2 sat is 98% on room air. RESPIRATORY: Essentially clear to auscultation bilaterally. CARDIAC: Regular rate and rhythm. ABDOMEN: Soft, nondistended, non-tender. Bowel sounds are positive. EXTREMITIES: No cyanosis , clubbing or edema. NEUROLOGIC: He is awake, alert and oriented times three. LABORATORY: WBCs are 9.8 with hemoglobin 11.3, hematocrit 34.3, neutrophils have improved slightly to 82.4%. Chemistries are basically within normal limits with the exception of his glucose is slightly elevated at 164. Preliminary urine culture shows no growth after 24 hours and his preliminary blood cultures are negative to date. RADIOLOGY: Chest x-ray shows cardiomegaly with vascular congestion and advanced chronic interstitial fibrosis. Abdominal x-ray shows hepatomegaly/ fullness of the right upper quadrant. All other labs and films have been reviewed via the EMR. ASSESSMENT: 1. Acute cholecystitis. 2. Right upper quadrant abdominal pain most likely secondary to #1 that has improved. 3. History of diverticular disease and CT concerns for diverticulitis. 4. Congestive heart failure with an ejection fraction of 35% from last echo in 2016. 5. History of atrial fibrillation. 6. History of lung cancer. 7. Type 2 diabetes mellitus. 8. Chronic obstructive pulmonary disease. 9. Benign prostatic hypertrophy. 10. History of cardiac pacemaker insertion. 11. Osteoarthritis. 12. Hyperlipidemia. 13. Hypothyroidism. PLAN: We will continue present supportive care. I have spoken to Dr. Bianchi about his case and he has allowed him to have some ice chips and we will continue him on bowel rest overnight. He feels much better since he had a large bowel movement and I have ordered routine lab for in the morning. Dr. Bianchi and I will discuss his case at that time. I have also ordered physical therapy to make sure he is safe when he goes home. We will continue to monitor the patient closely and followup as needed. Dr. Núñez is the collaborating physician available for consultation. #[id number] [facility]
[2017-04-02] MEDS ORDERED: levoFLOXacin 500MG IV 100 ML IVPB ONE (20:21)
[2017-04-02] MEDS: levoFLOXacin 500MG IV 500 MG in PREMIX BAG 1 BAG IVPB SCH (21:03)
[2017-04-03] MEDS: INSULIN LISPRO 100 UNITS/ML PEN SUBCU SCH ×2 (00:30→06:17)
[2017-04-03] MEDS ORDERED: metroNIDAZOLE IV PREMIX 500MG 100 ML IVPB ONE ×2 (00:32→07:35)
[2017-04-03] MEDS: metroNIDAZOLE IV PREMIX 500MG 500 MG in PREMIX BAG 1 BAG IVPB SCH ×2 (00:36→07:39)
[2017-04-03] MEDS ORDERED: FAMOTIDINE IV PREMIX 50 ML IVPB ONE (07:36)
[2017-04-03] MEDS: HYDROmorphone HCL INJ 2 MG/ML VIAL IV PRN (07:39)
[2017-04-03] MEDS: ALBUTEROL SULFATE 2.5 MG/3 ML VIAL NEB SCH (08:08)
[2017-04-03] MEDS: FAMOTIDINE IV PREMIX 20 MG in PREMIX BAG 1 BAG IVPB SCH (09:43)
[2017-04-03] MEDS: DIGOXIN 0.125 MG TAB PO SCH (09:43)
[2017-04-03 10:42] VITALS: BP 148/78; TEMP 98.3; O2SAT 98
--- NOTE | 2017-04-06 13:32 | DS ---
SUPERVISING PHYSICIAN: Jaguar Núñez MD DISCHARGE DIAGNOSIS: 1. Acute cholecystitis. 2. Right upper quadrant abdominal pain most likely secondary to #1, improved. 3. History of diverticular disease and CT concerns for diverticulitis. 4. Congestive heart failure with an ejection fraction of 35% from last echo in 2016. 5. History of atrial fibrillation. 6. History of lung cancer. 7. Type 2 diabetes mellitus. 8. Chronic obstructive pulmonary disease. 9. Benign prostatic hypertrophy. 10. History of cardiac pacemaker insertion. 11. Osteoarthritis. 12. Hyperlipidemia. 13. Hypothyroidism. HISTORY OF PRESENT ILLNESS: This is a 81-year-old male patient who was been having some right upper quadrant abdominal pain for several days. His abdomen was very tender to palpation and he actually had some vomiting times 3 on the day prior to his admission. He went to [facility] and saw LOYDA Bergman, and lab was done at that time as well as a CT of the abdomen. His WBCs were 11.1, hemoglobin 12.4, hematocrit 38.1, neutrophils 84.6% with sodium 135 and chloride 99, potassium 3.7, carbon dioxide 25, glucose 145. He also had a urinary tract infection on his urinalysis at [facility]. He was sent to the hospital for a CT scan. CT of the abdomen and pelvis per radiologic interpretation showed significantly distended gallbladder with wall thickening and pericholecystic fluid concerning for acute cholecystitis, small amount of free fluid is present along the right pericolic gutter. Surgical consultation was recommended. Sigmoid diverticula with surrounding fat stranding concerning for acute diverticulitis. Dr. Frazier, the patient's primary care physician, called and asked the patient be directly admitted. Dr. Bianchi was also consulted and discussed his case. He was sent to the hospital for direct admission. Gallbladder ultrasound was performed and per radiologic interpretation shows sonographic findings suggesting cholecystitis with an enlarged fatty liver. HOSPITAL COURSE: Dr. Bianchi was consulted. Urine culture and blood cultures were done. He was started on Flagyl and Levaquin as well as given some bowel rest. The patient was extremely high risk as a surgical candidate, so medical treatment was advised. It is to be noted that he was quite constipated and received several doses of Milk of Magnesia and Dulcolax. After having a good bowel movement and several days of bowel rest as well as several days of IV antibiotics, the patient's condition improved. He had very little pain in the abdomen. He was able to tolerate his diet. His white count normalized to 5.1 with neutrophils of 74.7%. Electrolytes normalized. His cultures, both urine and blood, showed no growth after 48 hours. At this point, the patient could be discharged home on a no fat diet in stable condition. DISCHARGE PLAN: The patient will be discharged home in stable condition. He has a followup with Dr. Bianchi on 04/07/17 at 10:[address] Frazier on 04/08/17 at 8:45 AM. He is to continue his no fat diet. I have also given him 5 additional days of Levaquin and Flagyl. He is to increase his activity as tolerated. He is contact Dr. Bianchi's office, Dr. Frazier's office or return to the hospital for any further complications or problems. DISCHARGE MEDICATIONS: 1. Metformin. 2. Furosemide. 3. Potassium chloride. 4. Finasteride. 5. Tamsulosin. 6. Digoxin. 7. Hydrocodone. 8. Vitamin D3. 9. Cranberry Plus Vitamin C. 10. Zyloprim. 11. Levofloxacin. 12. Metronidazole. Dr. Núñez is the collaborating physician and available for consultation. #[id number] [facility]
== END 2017-04-03 11:10 | disposition home health service (06) | DRG 445 ==
LOC: CT 11:15 → UNDOADMIN 14:05 → MS 14:05
PROVIDERS: ADMIT Nurse Practitioner Acute Care; ATTEND Nurse Practitioner Acute Care
PROC: BW21YZZ Computerized Tomography (CT Scan) of Abdomen and Pelvis using Other Contrast (ICD-10-PCS; principal; 2017-04-01)
DX: K81.0 Acute cholecystitis (principal); K57.32 Diverticulitis of large intestine without perforation or abscess without bleeding; I50.9 Heart failure, unspecified; I48.91 Unspecified atrial fibrillation; E11.9 Type 2 diabetes mellitus without complications; J44.9 Chronic obstructive pulmonary disease, unspecified; N40.0 Benign prostatic hyperplasia without lower urinary tract symptoms; M19.90 Unspecified osteoarthritis, unspecified site; E78.5 Hyperlipidemia, unspecified; E03.9 Hypothyroidism, unspecified; K59.00 Constipation, unspecified; M81.0 Age-related osteoporosis without current pathological fracture; I48.0 Paroxysmal atrial fibrillation; I11.0 Hypertensive heart disease with heart failure; Z88.8 Allergy status to other drugs, medicaments and biological substances; Z95.0 Presence of cardiac pacemaker; Z85.118 Personal history of other malignant neoplasm of bronchus and lung; Z88.2 Allergy status to sulfonamides; Z87.891 Personal history of nicotine dependence

== ENCOUNTER → 2017-05-15 | Outpatient (CLI) | payer MEDICARE | LOC: GMAM 10:34 | PROVIDERS: ATTEND Family Medicine | DX: E55.9 Vitamin D deficiency, unspecified (principal); Z79.899 Other long term (current) drug therapy ==

== ENCOUNTER 2017-05-21 05:51 | Observation (INO) | payer MEDICARE, OTHER ==
--- NOTE | 2017-05-19 10:19 | RAD ---
EXAM DESCRIPTION: Chest,2 Views CLINICAL HISTORY: 81 years Male, surg 05/21/17 COMPARISON: 04/02/2017 IMPRESSION: The heart is enlarged, with central pulmonary vascular congestion. A single lead left chest wall cardiac device is again demonstrated. There are hazy perihilar and bibasilar interstitial and airspace opacities, with more confluent airspace consolidation in the right lower lung zone. Moderate right and small left pleural effusions. The findings may relate to CHF with interstitial and pulmonary edema versus multifocal pneumonia. No pneumothorax. No acute osseous abnormality. Electronically signed by: Jani Shay MD 05/19/2017 10:18 AM [facility]
[2017-05-21] MEDS ORDERED: ceFAZolin SODIUM 1 GM VIAL ONE (07:16)
[2017-05-21] MEDS ORDERED: SODIUM CHL 0.9% 100ML MINI-BAG 100 ML IVPB ONE (07:16)
[2017-05-21] MEDS ORDERED: LACTATED RINGERS 1,000 ML ONE ×2 (07:16→10:46)
[2017-05-21] MEDS ORDERED: ROCURONIUM BROMIDE 10 MG/ML VIAL ONE (07:18)
[2017-05-21] MEDS ORDERED: fentaNYL CITRATE INJ 50 MCG/ML AMP ONE (07:18)
[2017-05-21] MEDS ORDERED: BUPIVACAINE 0.25% W/EPI 50 ML VIAL INJ ONE (07:40)
[2017-05-21] MEDS ORDERED: HEPARIN SODIUM (PORCINE) 10,000 UNITS/ML VIAL ONE (07:40)
[2017-05-21] MEDS ORDERED: PROPOFOL 200 MG/20 ML VIAL IV ONE (10:00)
[2017-05-21] MEDS ORDERED: ATROPINE SULFATE 0.4 MG/ML 1ML VIAL IV ONE (10:00)
[2017-05-21] MEDS ORDERED: NEOSTIGMINE METHYLSULFATE 1 MG/ML ML IV ONE (10:00)
[2017-05-21] MEDS ORDERED: LIDOCAINE 1% 10 ML VIAL INJ ONE (10:00)
[2017-05-21] MEDS ORDERED: LEVALBUTEROL NEBS 1.25 MG/3 ML VIAL NEB ONE (12:28)
--- NOTE | 2017-05-21 12:41 | OP ---
DATE OF PROCEDURE: 05/21/17 PREOPERATIVE DIAGNOSIS: 1. Symptomatic cholelithiasis. 2. Fatty infiltration of the liver. POSTOPERATIVE DIAGNOSIS: 1. Symptomatic cholelithiasis. 2. Subacute cholecystitis. 3. Fatty infiltration of the liver. 4. Ascites. 5. Multiple medical diagnoses. PROCEDURE: 1. Laparoscopic cholecystectomy with intraoperative cholangiography using fluoroscopy. 2. Wedge biopsy, right lobe of the liver. SURGEON: Thomas Bianchi MD. MOTOR VEHICLE EMISSIONS INSPECTOR: None. ANESTHESIA: Local infiltration of 0.25% Marcaine with epinephrine and general endotracheal anesthesia. INDICATION: The patient is a 81-year-old male who has had significant pain in the right upper quadrant with radiation to the back and fatty food intolerance. He has multiple medical issues. He was seen by his boat tester who felt he was an appropriate candidate for general anesthesia. The patient was brought to the Surgical Suite today for cholecystectomy with cholangiography and wedge biopsy of the liver after the risks, benefits and alternatives to the procedure were discussed and accepted. FINDINGS: The liver was large and rigid. No obvious masses were identified. No gross changes of cirrhosis were identified. There was approximately 100 mL of straw colored ascites within the abdominal cavity, mainly around the liver. There were multiple adhesions to the gallbladder, both flimsy and some very dense, especially the duodenum up to the neck of the gallbladder. Intraoperative cholangiography revealed free flow into the duodenum eventually. Initially, there was some poor flow, but it eventually opened up and drained well. The cystic duct did enter into the right hepatic duct. No obvious filling defects or strictures were identified. No other obvious pathology was identified. DESCRIPTION OF PROCEDURE: After adequate general endotracheal anesthesia was obtained, the patient was prepped and draped in the usual sterile manner. The infraumbilical area was infiltrated with 0.25% Marcaine with epinephrine. A curvilinear incision was fashioned and carried down through the subcutaneous tissue to the midline fascia. Traction sutures were placed on either side of the midline. A small incision was made in the midline fascia. Makayla trocar was introduced under direct vision into the abdominal cavity and fixed in place with the 20 mL balloon. CO2 was then insufflated until a pressure of 12 mmHg was reached and the abdomen was tympanitic in all four quadrants. When this was done, the laparoscope was introduced. The abdomen was inspected with the previously noted findings. The gallbladder was grasped laterally and retracted laterally and anteriorly. The adhesions to the gallbladder were then taken down using blunt dissection and electrocautery. Eventually, we got down to where the duodenum was against the neck and with tedious dissection, it was quite difficult due to the firmness of the scar tissue, the cystic duct and cystic artery were identified. A small incision was made in the cystic duct and cholangiogram catheter was introduced through a separate stab wound and was clipped in place with a clamp. Cholangiograms were then taken using fluoroscopy which revealed that the cystic duct entered the right hepatic duct and there was good flow into the duodenum with no stricture identified. When this was done, the cystic duct catheter was removed. The cystic duct was hemoclipped three times distally and divided between the hemoclips. The cystic artery was identified, clipped and divided. With tedious dissection, eventually the gallbladder was then dissected free from the jaleel hepatis and then dissected laterally from the gallbladder bed of the liver. The gallbladder was placed in an EndoCatch bag and removed from the abdomen in the usual manner under direct vision through the infraumbilical port site. When this was done, the subhepatic space was inspected. Hemostasis was obtained using electrocautery and clips. When this was done and hemostasis was noted to be adequate, the abdomen was irrigated copiously with saline. All clots were removed. The effluent was noted to be clear and there was good hemostasis. At this point, the wedge biopsy of the right lobe of the liver was obtained approximately midway from the gallbladder bed of the liver to the falciform ligament with scissors. The specimen was removed. Hemostasis was obtained with electrocautery turned up to 50. During this whole procedure, the patient' s pacemaker was covered with the magnet. At this point, both the subhepatic space and subphrenic space were irrigated copiously with saline. There was no obvious bleeding noted, but there had been some oozing. Due to the amount of dissection from the adhesions and the oozing, a 15 [place] round MACRINA drain was placed through the lateral port site and sutured in place into the subhepatic space and in the gallbladder bed of the liver with 3-0 Nylon ligature to the skin. When this was done, this was clamped. Again, hemostasis was noted to be adequate, so at this point, the upper abdominal ports were removed and adequate hemostasis was noted. At this point, the CO2, the laparoscope and the infraumbilical port were removed. The infraumbilical port site fascia was approximated with a single [id number] suture of 0 Vicryl. Subcutaneous tissue was irrigated with saline. Skin edges were approximated with 4-0 Vicryl subcuticular sutures, benzoin and Steri-Strips. Sterile dressings were applied. The patient was awakened and taken to the Recovery Room in stable condition. The MACRINA drain was cut to appropriate length and connected to a closed suction grenade type drainage. The patient tolerated the procedure well. Estimated blood loss was 500 to 600 mL. All sponge, needle and instrument counts were correct. #[id number] [facility]
[2017-05-21] MEDS ORDERED: MORPHINE SULFATE INJ 10 MG/ML VIAL ONE (12:57)
[2017-05-21] MEDS ORDERED: ONDANSETRON INJ 4 MG/2 ML VIAL IV PRN (15:24)
[2017-05-21] MEDS ORDERED: MORPHINE SULFATE INJ 10 MG/ML VIAL IV PRN (15:29)
[2017-05-21] MEDS: LACTATED RINGERS 1,000 ML IVS PRN (15:50)
[2017-05-21] MEDS ORDERED: DEXTROSE 50% 25 GM/50 ML SYG IV PRN (17:26)
[2017-05-21] MEDS ORDERED: GLUCAGON INJ 1 MG VIAL SUBCU PRN (17:26)
[2017-05-21] MEDS ORDERED: LEVALBUTEROL NEBS 1.25 MG/3 ML VIAL NEB PRN (17:32)
[2017-05-21] MEDS ORDERED: FUROSEMIDE INJ 20 MG/2 ML VIAL IV ONE (18:50)
[2017-05-21] MEDS: HYDROcodone 10MG/APAP 325MG 1 EA TAB PO PRN (21:07)
[2017-05-21] MEDS: INSULIN LISPRO 100 UNITS/ML PEN SUBCU SCH (21:14)
--- NOTE | 2017-05-21 21:56 | PCM.CORE ---
Physician DVT/VTE - Nurse DVT Assessment & Total Each Risk Factor Represents 3 Points: Medical PT with Hx of HI, CHF, Severe infection/sepsis Each Risk Factor Represents 2 Points: Major Surgery >45 minutes Each Risk Factor Represents 1 Point: Medical PT at Bed Rest Each Risk Factor is 1 Point: Obesity (BMI >25) DVT Assessment Score: 7 - 5 or more Very High Risk Treatments: Early Ambulation *, Sequential Compression Device Pharmacological: Enoxaparin 40mg SQ Daily
[2017-05-21] MEDS ORDERED: metFORMIN HCL 500 MG TAB PO SCH (22:00)
[2017-05-21] MEDS ORDERED: GABAPENTIN 300 MG CAP PO SCH (22:00)
[2017-05-21] MEDS: FINASTERIDE 5 MG TAB PO SCH (22:31)
[2017-05-21] MEDS: DIGOXIN 0.125 MG TAB PO SCH (22:31)
[2017-05-22] MEDS: LEVALBUTEROL NEBS 1.25 MG/3 ML VIAL NEB SCH ×2 (00:26→09:17)
[2017-05-22] MEDS: LACTATED RINGERS 1,000 ML IVS PRN (04:34)
[2017-05-22] MEDS ORDERED: LEVOTHYROXINE SODIUM 0.025 MG TAB ONE (06:27)
[2017-05-22] MEDS: HYDROcodone 10MG/APAP 325MG 1 EA TAB PO PRN ×2 (06:35→11:50)
[2017-05-22] MEDS ORDERED: NON-FORMULARY MEDICATION 1 EA MIS (Levothyroxine Sodium [Levothyroxine Sodium] 50 MCG) PO SCH (07:00)
[2017-05-22] MEDS ORDERED: FUROSEMIDE 40 MG TAB ONE (07:45)
[2017-05-22] MEDS ORDERED: CHOLECALCIFEROL 2,000 IU TAB PO ONE (07:45)
[2017-05-22] MEDS: INSULIN LISPRO 100 UNITS/ML PEN SUBCU SCH (07:56)
[2017-05-22] MEDS ORDERED: LEVALBUTEROL NEBS 1.25 MG/3 ML VIAL NEB ONE (08:09)
[2017-05-22] MEDS ORDERED: SODIUM CHLORIDE 0.9% (FLUSH) 10 ML SYG IV PRN (08:29)
[2017-05-22] MEDS ORDERED: IV SET AND CAP CHANGE INJ INJ SCH (08:30)
[2017-05-22] MEDS: DIGOXIN 0.125 MG TAB PO SCH (08:38)
[2017-05-22] MEDS: FINASTERIDE 5 MG TAB PO SCH (08:39)
[2017-05-22] MEDS ORDERED: CHOLECALCIFEROL 2,000 IU TAB PO SCH (09:00)
[2017-05-22] MEDS ORDERED: metFORMIN HCL 500 MG TAB PO SCH (09:00)
[2017-05-22] MEDS ORDERED: LEVOTHYROXINE SODIUM 0.025 MG TAB PO SCH (09:00)
[2017-05-22] MEDS ORDERED: FUROSEMIDE 40 MG TAB PO SCH (09:00)
[2017-05-22] MEDS ORDERED: TAMSULOSIN 0.4 MG CAP PO SCH (09:00)
[2017-05-22] MEDS ORDERED: ALLOPURINOL 100 MG TAB PO SCH (09:00)
[2017-05-22 09:57] VITALS: BP 145/75; TEMP 98.8
--- NOTE | 2017-05-22 09:58 | CONS ---
SUPERVISING PHYSICIAN: Pedro Frazier MD REASON FOR CONSULTATION: Postoperative cholecystectomy with multiple comorbidities. HISTORY OF PRESENT ILLNESS: Mr. Dennis is a 81 year-old male patient who was recently in the hospital in April 2017 diagnosed with acute cholecystitis. He continued to have significant pain in the right upper quadrant with radiation to the back and with fatty food intolerance. Given his failure to resolve his symptoms with conservative measure treatment, Dr. Bianchi performed a laparoscopic cholecystectomy with a wedge biopsy of the right liver for symptomatic cholelithiasis and fatty infiltration of the liver. The patient transitioned from the operating room to recovery and to the medical/ surgical floor in stable condition and Dr. Bianchi requested hospitalist consultation to assist with close management of his multiple comorbidities to include renal insufficiency, chronic obstructive pulmonary disease, history of lung cancer, diabetes and congestive heart failure. The patient was seen and found to be in stable condition postoperatively on the medical/surgical floor. PAST MEDICAL HISTORY: 1. Symptomatic cholelithiasis with previous hospitalization in April 2011 requiring operative intervention for symptom control. 2. Acute renal insufficiency. 3. Benign prostatic hypertrophy. 4. Cervical neuropathy. 5. Chronic obstructive pulmonary disease. 6. History of lung cancer. 7. Hypertension. 8. Hyperlipidemia. 9. Hypothyroidism. 10. Osteoporosis. . 11. Osteoarthritis.. 12. Paroxysmal atrial fibrillation. 13. Supraventricular tachycardia. 14. Diabetes mellitus type 2 on oral therapy. 15. Congestive heart failure with estimated ejection fraction of 35% from last echo in 2016. 16. Diverticular abscess followed closely by Dr. Bianchi and Dr. Gary and Dr. Frazier. PAST SURGICAL HISTORY: 1. Current laparoscopic cholecystectomy with intraoperative angiography with wedge biopsy of the right lobe of the liver. 2. Open reduction and internal fixation of right hip. 3. Back surgeries times 2. 4. Pacemaker placement. 5. Appendectomy as a child. ALLERGIES: PRILOSEC, SULFA, GABAPENTIN, JANUVIA, LISINOPRIL HYDROCHLOROTHIAZIDE , TERAZOSIN AND XARELTO. SOCIAL HISTORY: The patient is retired, , has two children. Previously was a cigarette smoker extensively up to three packs a day but quit in 1999. He does have a brief history of alcohol usage but quit in his early 40s. He denies any illicit drug use. REVIEW OF SYSTEMS: CONSTITUTIONAL: Denies any fatigue or fever, chills, or unintentional weight loss. HEENT: Denies ear pain, vision changes, sinus congestion, sore throat. RESPIRATORY: He does have a nonproductive cough but denies any weakness or shortness of breath. CARDIOVASCULAR: Denies chest pain, tachycardia, palpitations. GASTROINTESTINAL: As per history of present illness. GENITOURINARY: Has a history of polyuria but negative for dysuria or hematuria. NEUROLOGIC: Negative for headaches, dizziness or seizures. PHYSICAL EXAMINATION: VITAL SIGNS: Temperature 97.6, pulse 69, blood pressure 145/72, respirations 20 , saturation 97% on nasal cannula at 2 liters. Admission weight 89.8 kg. GENERAL: The patient is seen immediately in postoperative state and appears to be comfortable and in no acute distress with good pain control with bulky dressing in place over the right upper quadrant. He is utilizing a pillow for splinting. HEENT: Tympanic membranes clear bilaterally. Oropharynx pink, moist without any lesions. No jugular venous distention. NECK: Supple, non-tender with full range of motion. No jugular venous distention. CHEST: Lungs diminished towards the bases with just a very faint expiratory wheeze noted more so on the left than the right but no rhonchi or rales. HEART: Regular rate and rhythm without appreciable murmurs, rubs, or gallops. ABDOMEN: Tender with surgical dressing in place. MACRINA drain showing some serosanguineous fluid. Distant bowel sounds. EXTREMITIES: No cyanosis, clubbing, trace of edema bilaterally to lower extremities. NEUROLOGIC: Alert and oriented x 3 with facial features being symmetrical. Extraocular movement within normal limits. No nystagmus was noted. LABORATORY: Postoperative hemoglobin 11.2, hematocrit 34.6, platelet count 147, 000, white count 5,200. Chemistries showed normal electrolytes both preoperatively and postoperatively with potassium 4.5, BUN 21, creatinine initially 1.25, after surgery was 1.39. Glucose 149, calcium 8.6, liver functions on initial laboratory on 05/19 showed liver functions to be was negative. Urinalysis on 05/19 showed trace intact blood with trace leukoesterase but otherwise within normal limits. MICROBIOLOGY: No specimens submitted. PATHOLOGY: Pending. RADIOLOGY: Preoperative chest x-ray showed heart size enlarged with central patient underwent vascular congestion with a hazy perihilar and bibasilar interstitial air-space opacity with more confluent air-space consolidation in the right lower lung zone, moderate right small pleural effusion, findings may relate to congestive heart failure with interstitial and pulmonary edema versus multifocal pneumonia, pneumothorax but no acute osseous abnormalities noted per radiology interpretation. ASSESSMENT: 1. Status post laparoscopic cholecystectomy with intraoperative angiography and a wedge biopsy of the right lobe of the liver. 2. History of multiple comorbidities to include congestive heart failure with last echocardiogram showed ejection fraction of 35% from 2016. Other comorbidities include acute renal insufficiency, chronic obstructive pulmonary disease, diabetes mellitus type 2 hypertension, hyperlipidemia, hypothyroidism, osteoporosis , osteoarthritis, history of paroxysmal atrial fibrillation with pacemaker implantation with a history previously of supraventricular tachycardia. 3. Diverticular abscess followed closely by Dr. Frazier, Dr. Gary and Dr. Bianchi. PLAN: Will follow the patient closely in regards to his multiple comorbidities and watch his blood pressure and start him on sliding scale for his diabetes. Will defer other surgical management to Dr. Bianchi. He does have some fluid leaking around his MACRINA drain which Dr. Bianchi describes this more of a clear serous fluid with some noted ascites that was around his liver intraoperatively. Given that he does have some peripheral edema and the findings on x-ray, we will go ahead and do a BNP and go ahead and start him on his Lasix IV tonight initially with 20 mg and then reassess in the morning. We will go ahead and start him on some breathing treatments with Xopenex and encourage good pulmonary hygiene. Will restart his medications as he tolerates his diet and again reassess in the morning with laboratory studies. Will continue to follow the patient until discharge and continue to monitor and treat appropriately. #[id number] [facility]
[2017-05-22 10:30] VITALS: O2SAT 94
[2017-05-22] MEDS ORDERED: ENOXAPARIN SODIUM 40 MG/0.4 ML SYG SUBCU SCH (13:00)
[2017-05-22] MEDS ORDERED: POTASSIUM CHLORIDE 10 MEQ TAB PO SCH (17:00)
[2017-05-23] MEDS ORDERED: LEVOTHYROXINE SODIUM 0.025 MG TAB PO SCH (06:30)
== END 2017-05-22 12:51 | disposition home or self-care (01) ==
LOC: AMB 05:51 → MS 14:00 → INTOOBSV 14:00
PROVIDERS: ADMIT Surgery; ATTEND Surgery
DX: K81.0 Acute cholecystitis (principal)
CPT/HCPCS: 36415 ×3; 36416 ×5; 71020; 80048; 80053 ×2; 81001; 82948 ×5; 83880; 85025 ×3; 88304; 88307; 88313; 93005; 94640 ×3; J0690; J1644; J1940; J2270; J2710; J3010; J3490; J7050; J7120 ×4; J7614 ×3

== ENCOUNTER → 2017-06-03 | Outpatient (CLI) | payer MEDICARE | END | disposition home or self-care (01) | LOC: GMAM 14:39 | PROVIDERS: ATTEND Family Medicine | DX: K76.0 Fatty (change of) liver, not elsewhere classified (principal); R94.5 Abnormal results of liver function studies; D37.6 Neoplasm of uncertain behavior of liver, gallbladder and bile ducts ==

== ENCOUNTER 2017-06-13 18:04 | Inpatient (IN) | payer MEDICARE, OTHER ==
[2017-06-13] MEDS ORDERED: FUROSEMIDE INJ 40 MG/4 ML VIAL IV ONE (18:21)
--- NOTE | 2017-06-13 18:41 | RAD ---
EXAM DESCRIPTION: Chest,1 View CLINICAL HISTORY: SOB, mild hypoxia COMPARISON: 05/19/2017 FINDINGS: Cardiac silhouette is again enlarged, and there is moderate left pleural effusion that has increased along with consolidation at the left lung base. There is also worsening consolidation at the right lung base with increasing moderate right pleural effusion and atelectasis involving the right lung. Superior mediastinal widening is mildly worsened. No other acute change. IMPRESSION: Worsening bilateral effusions and consolidations. Persistent cardiomegaly. Electronically signed by: Milo Francois 06/13/2017 6:40 PM [facility]
--- NOTE | 2017-06-13 19:22 | ED.PDOC ---
History of Present Illness - General Chief Complaint: Respiratory Problem Stated Complaint: SOB Time Seen by Provider: 06/13/17 18:09 Source: patient, RN notes reviewed, Vital Signs reviewed, family Additional Information: Pt with reported worsening SOB. He has a history of COPD and CHF. He also reports worsening orthopnea and bilateral lower extremity edema. Upon arrival Pt had POX 89% on RA which improved to 95% with 2 L NC. - History of Present Illness Timing/Duration: getting worse Severity: moderate Improving Factors: rest Worsening Factors: movement Allergies/Adverse Reactions: Allergies Aspirin Allergy (Verified 06/13/17 18:18) Hydrochlorothiazide Allergy (Verified 06/13/17 18:18) Lisinopril Allergy (Verified 06/13/17 18:18) Omeprazole [From Prilosec] Allergy (Verified 06/13/17 18:18) Paroxetine [From Paxil] Allergy (Verified 06/13/17 18:18) Rivaroxaban [From Xarelto] Allergy (Verified 06/13/17 18:18) Sitagliptin [From Januvia] Allergy (Verified 06/13/17 18:18) Sulfa Drugs Allergy (Verified 06/13/17 18:18) Terazosin Allergy (Verified 06/13/17 18:18) Home Medications: Ambulatory Orders Finasteride 5 mg PO BID 05/12/12 Furosemide [Lasix] 20 mg PO 0900,1900 05/12/12 Metformin HCl 1,000 mg PO BID 05/12/12 Potassium Chloride [Potassium Chloride ER] 10 meq PO QPM 05/12/12 Tamsulosin HCl 0.4 mg PO DAILY 05/12/12 Digoxin 0.125 mg PO BID 10/05/12 Cholecalciferol [Vitamin D3] 1,000 unit PO DAILY 05/23/15 Cranberry-Vitamin C-Vitamin E [Cranberry Plus Vitamin C 4200-20-3 mg-Unit] 1 cap PO DAILY 05/23/15 HYDROcodone 10MG/APAP 325MG [Justice 10/325] 2 tab PO BID 05/23/15 Allopurinol [Zyloprim] 100 mg PO DAILY 04/01/17 Gabapentin 600 mg PO BEDTIME 05/19/17 Levothyroxine Sodium 50 mcg PO DAILY@0700 05/19/17 Review of Systems - Review of Systems Constitutional: States: weakness - associated with SOB EENTM: States: no symptoms reported Respiratory: States: see HPI, orthopnea, short of breath Cardiology: States: see HPI, edema - Bilateral Lower Extremity Gastrointestinal/Abdominal: States: no symptoms reported Genitourinary: States: no symptoms reported Musculoskeletal: States: no symptoms reported Skin: States: no symptoms reported Neurological: States: no symptoms reported Endocrine: States: no symptoms reported Hematologic/Lymphatic: States: no symptoms reported Past Medical History (General) - Patient Medical History Hx Seizures: No Hx Stroke: No Hx Dementia: No Hx Asthma: No Hx of COPD: No Hx Cardiac Disorders: Yes - PACEMAKER Hx Congestive Heart Failure: Yes Hx Pacemaker: Yes Hx Hypertension: Yes Hx Thyroid Disease: No Hx Diabetes: Yes Hx Gastroesophageal Reflux: No Hx Renal Disease: No Hx Cancer: No Hx of HIV: No Hx Hepatitis C: No Hx MRSA: No Surgical History: appendectomy, cholecystectomy - Vaccination History Hx Tetanus, Diphtheria Vaccination: Yes Hx Influenza Vaccination: Yes Hx Pneumococcal Vaccination: Yes Immunizations Up to Date: Yes - Social History Hx Tobacco Use: No Hx Chewing Tobacco Use: No Hx Alcohol Use: No - HX OF ETOH BUT QUIT ABOUT 12YR AGO Hx Substance Use: No Hx Substance Use Treatment: No Hx Depression: No Hx Physical Abuse: No Hx Emotional Abuse: No Hx Suspected Abuse: No - Female History Patient : No Family Medical History - Family History Father Family History: No Known Living Status: Hx Family Hypertension: Yes - mother Hx Family Diabetes: Yes - several family member Physical Exam - Physical Exam General Appearance: Anxious - initially, then improved with supplemental oxygen , Frail Eyes, Ears, Nose, Throat Exam: PERRL/EOMI, normal ENT inspection Neck: non-tender, full range of motion, supple Respiratory: respiratory distress - very mild initially, improved with Lasix 40 mg IV x 1 and supplemental oxygen, decreased breath sounds - at bases Cardiovascular/Chest: regular rate, rhythm Gastrointestinal/Abdominal: soft Extremity: normal range of motion, pedal edema, swelling - below the knee bilaterally 1+ to 2+ edema Neurologic: smearer II-XII nml as tested, no motor/sensory deficits, alert, normal mood/affect, oriented x 3 Skin Exam: normal color Lymphatic: no adenopathy Progress - Progress Progress: 06/13/17 19:36 Patient with signs and symptoms consistent with worsening CHF. Patient subjectively and objectively improved with supplemental oxygen and Lasix 40 mg IV x 1. No evidence of ACS. Patient agrees with plan to admit for observation and arrange for home oxygen if needed as well as arranging for expedited Cardiology follow-up for maximization of outpatient management. Spoke with Hospitalist at 1933 who accepts admission. 06/13/17 19:46 - Results/Orders Results/Orders: CXR Report: EXAM DESCRIPTION: Chest,1 View CLINICAL HISTORY: SOB, mild hypoxia COMPARISON: 05/19/2017 FINDINGS: Cardiac silhouette is again enlarged, and there is moderate left pleural effusion that has increased along with consolidation at the left lung base. There is also worsening consolidation at the right lung base with increasing moderate right pleural effusion and atelectasis involving the right lung. Superior mediastinal widening is mildly worsened. No other acute change. IMPRESSION: Worsening bilateral effusions and consolidations. Persistent cardiomegaly. 06/13/17 18:30 EKG STAT Laboratory Results - last 24 hr 06/13/17 06/13/17 06/13/17 18:26 18:26 18:26 WBC 5.8 RBC 4.12 L Hgb 11.2 L Hct 34.8 L MCV 84.6 MCH 27.1 MCHC 32.2 L RDW 17.0 H Plt Count 168 MPV 6.8 L Absolute Neuts (auto) 4.10 Absolute Lymphs (auto) 0.80 L Absolute Monos (auto) 0.60 Absolute Eos (auto) 0.20 Absolute Basos (auto) 0.00 Neutrophils % 71.7 Lymphocytes % 13.6 L Monocytes % 10.6 H Eosinophils % 3.4 Basophils % 0.7 Sodium 141 Potassium 4.4 Chloride 104 Carbon Dioxide 29 Anion Gap 12.4 BUN 19 H Creatinine 1.33 H BUN/Creatinine Ratio 14.3 Random Glucose 110 H Serum Osmolality 284.2 Calcium 8.7 Iron 24 L TIBC 324.8 Iron Saturation 7.30 L Ferritin Total Bilirubin 0.8 AST 15 ALT 9 L Alkaline Phosphatase 91 Creatine Kinase 31 L CK-MB (CK-2) 1.1 CK-MB (CK-2) % Not Reportable Troponin I 0.02 B-Natriuretic Peptide 617.0 H* Serum Total Protein 7.4 Albumin 3.7 Globulin 3.7 H Albumin/Globulin Ratio 1.0 L Digoxin 06/13/17 06/13/17 18:26 18:26 WBC RBC Hgb Hct MCV MCH MCHC RDW Plt Count MPV Absolute Neuts (auto) Absolute Lymphs (auto) Absolute Monos (auto) Absolute Eos (auto) Absolute Basos (auto) Neutrophils % Lymphocytes % Monocytes % Eosinophils % Basophils % Sodium Potassium Chloride Carbon Dioxide Anion Gap BUN Creatinine BUN/Creatinine Ratio Random Glucose Serum Osmolality Calcium Iron TIBC Iron Saturation Ferritin 36.3 Total Bilirubin AST ALT Alkaline Phosphatase Creatine Kinase CK-MB (CK-2) CK-MB (CK-2) % Troponin I B-Natriuretic Peptide Serum Total Protein Albumin Globulin Albumin/Globulin Ratio Digoxin 2.8 H 06/13/17 06/13/17 18:13 18:18 Temperature 95.9 F L Pulse Rate [ 97 H MONITOR] Respiratory 22 22 Rate Blood Pressure 144/89 [LA] O2 Sat by Pulse 89 L Oximetry POX improved to 98% on 2 Liters NC. Urine Output of 200 ml s/p Lasix 40 mg IV x 1. - EKG/XRAY/CT EKG: Sinus - and paced rhythm 79 bpm XRAY: chest - see above Departure - Departure Clinical Impression: Hypoxia Acute exacerbation of CHF (congestive heart failure) Qualifiers: Congestive heart failure type: unspecified congestive heart failure type Qualified Code(s): I50.9 - Heart failure, unspecified Time of Disposition: 20:15 Disposition: Admit Patient Condition: Fair Departure Forms: ED Discharge - Pt. Copy, Patient Portal Self Enrollment Referrals: Pedro Frazier MD [Primary Care Provider] - 1-2 Weeks Home Medications: Ambulatory Orders Finasteride 5 mg PO BID 05/12/12 Furosemide [Lasix] 20 mg PO 0900,1900 05/12/12 Metformin HCl 1,000 mg PO BID 05/12/12 Potassium Chloride [Potassium Chloride ER] 10 meq PO QPM 05/12/12 Tamsulosin HCl 0.4 mg PO DAILY 05/12/12 Digoxin 0.125 mg PO BID 10/05/12 Cholecalciferol [Vitamin D3] 1,000 unit PO DAILY 05/23/15 Cranberry-Vitamin C-Vitamin E [Cranberry Plus Vitamin C 4200-20-3 mg-Unit] 1 cap PO DAILY 05/23/15 HYDROcodone 10MG/APAP 325MG [Justice 10/325] 2 tab PO BID 05/23/15 Allopurinol [Zyloprim] 100 mg PO DAILY 04/01/17 Gabapentin 600 mg PO BEDTIME 05/19/17 Levothyroxine Sodium 50 mcg PO DAILY@0700 05/19/17 Decision To Admit - Decistion To Admit Decision to Admit Reason: Medical Nature - CHF Exacerbation Decision to Admit Date: 06/13/17 Decision to Admit Time: 19:33
--- NOTE | 2017-06-13 21:05 | HP ---
SUPERVISING PHYSICIAN: Pedro Frazier MD CHIEF COMPLAINT: Shortness of breath and left-sided rib pain. HISTORY OF PRESENT ILLNESS: This is a 81 year-old male patient who has had shortness of breath for approximately one week. He did say his left side along his lateral ribs has been hurting for approximately two to three weeks but over the last week his shortness of breath has worsened and in the last two days swelling in his lower extremities has increased. He also complains of some fatigue and so about three or four days ago he quit taking his Lasix because he was having to get up to urinate too much and it made him very tired. Upon arrival in the Emergency Room, his 02 saturation was 89% and he had +2 pedal edema. Oxygen was placed on him and his 02 saturation came up to the mid 90s. He was given some IV Lasix. His white count was 5.8 with a hemoglobin of 11.2 and hematocrit of 34.8. Electrolytes were basically within normal limits. His BUN was 19, creatinine 1.33. Baseline creatinine is approximately 1.3. Glucose was slightly elevated at 110 with his troponin of 0.02. Creatinine kinase 31, CKMB 1.1. BMP 617. Iron was low at 24 with iron saturation of 7.3. TIBC was 324.8 with a ferritin of 36.3. Urinalysis was basically within normal limits and digoxin level was high at 2.8. Chest x-ray per radiology interpretation showed worsening bilateral effusions and consolidations with persistent cardiomegaly. I was called for admission to the hospital. PAST MEDICAL HISTORY: 1. Acute renal insufficiency. 2. Benign prostatic hypertrophy. 3. Cervical neuropathy. 4. Chronic obstructive pulmonary disease. 5. History of lung cancer. 6. Hypertension. 7. Hyperlipidemia. 8. Hypothyroidism. 9. Osteoporosis. . 10. Osteoarthritis.. 11. Paroxysmal atrial fibrillation. 12. Supraventricular tachycardia. 13. Diabetes mellitus type 2.. 14. Congestive heart failure with ejection fraction of 35% from echo in 2016. He sees Dr. Chu in [place]. 15. Diverticular abscess. 16. Symptomatic cholelithiasis with a cholecystectomy in May 2017. PAST SURGICAL HISTORY: 1. Open reduction and internal fixation of right hip. 2. Back surgeries times 2. 3. Recent laparoscopic cholecystectomy with intraoperative angiography and wedge biopsy of the right lobe of the liver in May [address] Bianchi. 4. Pacemaker placement. 5. Appendectomy as a child. ALLERGIES: 1. PRILOSEC 2. SULFA 3. GABAPENTIN 4. JANUVIA 5. LISINOPRIL 6. HYDROCHLOROTHIAZIDE 7. TERAZOSIN 8. XARELTO SOCIAL HISTORY: He is retired. He is . He has two children. He has a previous history of cigarette smoking and quit in 1999. He has a previous history of alcohol use but he quit several years ago and he denies any illicit drug use. MEDICATIONS: Per the EMR and awaiting verification/ REVIEW OF SYSTEMS: GENERAL: Positive for fatigue, negative for fever or weight changes. HEENT: Negative for ear pain, vision changes, sinus symptoms ore sore throat. RESPIRATORY: Positive for shortness of breath., negative for coughing or wheezing. CARDIAC: Negative for chest pain, tachycardia or palpitations. GI: Negative for abdominal pain, nausea, vomiting, diarrhea or constipation. : Positive for polyuria and nocturia, negative for dysuria or hematuria. MUSCULOSKELETAL: Left lateral rib pain worsened with inspiration. NEURO: Negative for headaches, dizziness or seizures. PHYSICAL EXAMINATION: VITAL SIGNS: Temperature 95.9, now 97.8, pulse rate 71, blood pressure 136/74, respiratory rate 20, 02 saturation 89% on admission to the Emergency Room, is now 97% on two liters nasal cannula. GENERAL: This is a 81 year-old male patient who is sitting on the side of his bed. He looks to be in mild respiratory distress. HEENT: Normocephalic and atraumatic. Pupils are equal and reactive. Oropharynx is clear. Oral mucous membranes are moist. NECK: Supple without mass. There is no discernible jugular venous distention. CHEST: A few scattered crackles to the apices, very diminished breath sounds at the bases. There is no wheezing. There is equal rise and fall of the chest with inspiration and expiration. CARDIOVASCULAR: Irregular rhythm, regular rate. ABDOMEN: Soft, nondistended, non-tender. Bowel sounds are positive. EXTREMITIES: +2 bilateral pedal edema, no cyanosis or clubbing. MUSCULOSKELETAL: He is tender to palpation along the lower left ribs. Otherwise, his gait is slow. NEUROLOGIC: He is awake, alert and oriented x3. His labs and films are as per the history of present illness. ASSESSMENT: 1. Sepsis most likely secondary to bilateral pneumonia with a temperature of 95.9, respiratory rate of 22 and 02 saturation of 89% and heart rate of 97. 2. Exacerbation of congestive heart failure with BNP of 617 and lower extremity edema and diastolic systolic and an ejection fraction of 35% from an echocardiogram in 2016. 3. Exacerbation of chronic obstructive pulmonary disease with concerns for bilateral pneumonia. 4. Renal insufficiency. 5. Iron-deficiency anemia. 6. Elevated digoxin level. 7. Chronic renal insufficiency. 8. Diabetes mellitus type 2. PLAN: We will admit the patient to the hospital. I have initiated the congestive heart failure and pneumonia guidelines. I have done blood cultures as well as sputum culture and have started him on azithromycin and Rocephin. I will also give him some IV Lasix tomorrow and we will need to restart him on p.o. Lasix at some point. I have done some education on the times to take his Lasix as he was taking Lasix in the morning and at night and he was not getting much rest so I have educated him on taking his Lasix early in the morning and right after lunch. We will monitor his I&O closely. He will be on the night monitor. I will restart his home medications as soon as they are verified. I have also started him on sliding scale NovoLog insulin. I have also ordered a chest x-ray in the morning. We will monitor his cultures closely and followup as needed. Dr. Frazier is the collaborating physician and available for consultation #[id number] [facility]
[2017-06-13] MEDS ORDERED: SODIUM CHLORIDE 0.9% (FLUSH) 10 ML SYG IV PRN ×2 (22:40→22:46)
[2017-06-13] MEDS ORDERED: NITROGLYCERIN 0.4 MG 25 EA TAB SL PRN (22:40)
[2017-06-13] MEDS ORDERED: DEXTROSE 50% 25 GM/50 ML SYG IV PRN (22:46)
[2017-06-13] MEDS ORDERED: GLUCAGON INJ 1 MG VIAL SUBCU PRN (22:46)
[2017-06-13] MEDS ORDERED: ALBUTEROL SULFATE 2.5 MG/3 ML VIAL NEB PRN (22:46)
[2017-06-13] MEDS ORDERED: cefTRIAXone SODIUM 1 GM in SODIUM CHL 0.9% 50ML MIN-BAG+ 50 ML IVPB SCH (23:00)
[2017-06-13] MEDS ORDERED: IV SET AND CAP CHANGE INJ INJ SCH ×2 (23:00)
[2017-06-13] MEDS: AZITHROMYCIN IV 500 MG in SODIUM CHLORIDE 0.9% 250ML 250 ML IVPB SCH (23:25)
[2017-06-14] MEDS ORDERED: SODIUM CHL 0.9% 100ML MINI-BAG 100 ML IVPB ONE (00:06)
[2017-06-14] MEDS ORDERED: cefTRIAXone SODIUM 1 GM VIAL ONE ×2 (00:06→20:05)
[2017-06-14] MEDS ORDERED: SODIUM CHLORIDE 0.9% 250ML 250 ML ONE ×2 (00:06→20:04)
[2017-06-14] MEDS ORDERED: AZITHROMYCIN IV 500 MG VIAL IVPB ONE ×2 (00:07→20:05)
[2017-06-14] MEDS: TEMAZEPAM 15 MG CAP PO PRN ×2 (00:25→21:58)
[2017-06-14] MEDS: PANTOPRAZOLE SODIUM IV 40 MG VIAL IV SCH (06:15)
--- NOTE | 2017-06-14 06:24 | RAD ---
EXAM DESCRIPTION: Chest,2 Views CLINICAL HISTORY: CHF COMPARISON: 06/13/2017 FINDINGS: Frontal and lateral views of the chest. Left-sided infraclavicular generator. Cardiomegaly. Tortuosity of thoracic aorta. Persistent moderate bilateral pleural effusions with bibasilar airspace opacities and interstitial edema. No pneumothorax. Generative change of the spine. Upper abdominal soft tissues are unremarkable. IMPRESSION: 1. No significant interval change with persistent moderate bilateral pleural effusions and pulmonary edema. Electronically signed by: Donald Butts 06/14/2017 6:23 AM [facility]
[2017-06-14] MEDS: INSULIN LISPRO 100 UNITS/ML PEN SUBCU SCH ×4 (07:59→22:03)
[2017-06-14] MEDS ORDERED: MAGNESIUM SULFATE PREMIX 2GM 2 GM in PREMIX BAG 1 BAG IVPB ONE (08:49)
[2017-06-14] MEDS: ALBUTEROL SULFATE 2.5 MG/3 ML VIAL NEB SCH ×4 (08:53→20:15)
[2017-06-14] MEDS ORDERED: MAGNESIUM SULFATE PREMIX 2GM 50 ML IVPB ONE (09:47)
[2017-06-14] MEDS: SODIUM CHLORIDE 0.9% (FLUSH) 10 ML SYG IV SCH ×2 (10:07→20:40)
[2017-06-14] MEDS: FUROSEMIDE INJ 40 MG/4 ML VIAL IV SCH ×2 (10:07→16:41)
[2017-06-14] MEDS: HYDROcodone 10MG/APAP 325MG 1 EA TAB PO PRN (10:14)
[2017-06-14] MEDS ORDERED: HYDROcodone 10MG/APAP 325MG 1 EA TAB PO ONE (11:13)
[2017-06-14] MEDS ORDERED: POTASSIUM CHLORIDE 10 MEQ TAB PO SCH ×2 (16:00→17:00)
[2017-06-14] MEDS: metFORMIN HCL 500 MG TAB PO SCH (16:40)
[2017-06-14] MEDS: HYDROcodone 10MG/APAP 325MG 1 EA TAB PO SCH (17:48)
--- NOTE | 2017-06-14 18:18 | PN ---
DATE: 06/14/17 SUPERVISING PHYSICIAN: Pedro Frazier M.D. SUBJECTIVE: The patient is sitting up on the side of his bed. He complains of shortness of breath and weakness as well as coughing. Denies any chest pain, nausea or vomiting. Says he just feels like he cannot get his breath. I spoke with his daughter and she feels like he has not been taking his Albuterol treatments at home and he quit taking his Lasix several days ago because he did not like getting up to go to the bathroom all night. OBJECTIVE: Temperature 96.2, heart rate 63, blood pressure 120/63, respiratory rate 20, O2 sat is 96% on 2 liters nasal cannula. RESPIRATORY: Coarse breath sounds throughout, diminished at the bases. He is slightly tachypneic and can speak in phrases without any noticeable dyspnea. He is tachypneic with any exertion, but he is able to speak phrases without any noticeable dyspnea. CARDIAC: Slightly irregular rhythm, regular rate. GASTROINTESTINAL: Abdomen is soft, nondistended, non-tender. Bowel sounds are positive. EXTREMITIES: +2 bilateral lower extremity edema. There is no cyanosis or clubbing. NEUROLOGIC : He is awake, alert and oriented times three. LABORATORY: Sodium 142, potassium 4.1, chloride 103, carbon dioxide 29, BUN 18 , creatinine 1.4, magnesium 1.7. Bilirubin 1.1. WBCs are 5.8, hemoglobin 10.6 and 32.5. Digoxin level is 1.8 today. Preliminary aerobic blood cultures are pending. Preliminary anaerobic cultures are negative to date. RADIOLOGY: Chest x-ray shows no significant interval change with persistent moderate bilateral pleural effusion and pulmonary edema. All other labs and films have been reviewed via the EMR. ASSESSMENT: 1. Sepsis most likely secondary to bilateral pneumonia with a temperature of 95.9, respiratory rate of 22 and 02 saturation of 89% with a heart rate of 97 on admission. 2. Exacerbation of congestive heart failure with BNP of 617 and lower extremity edema. His echocardiogram in 2016 shows a diastolic and systolic component with an ejection fraction of 35%. 3. Exacerbation of chronic obstructive pulmonary disease with concerns for bilateral pneumonia. 4. Chronic renal insufficiency. 5. Iron-deficiency anemia. 6. Elevated digoxin level. 7. Diabetes mellitus type 2. PLAN: We will continue present supportive care. I have restarted his Digoxin for tomorrow but his home medication of Digoxin is 0.125 b.i.d. and I have decreased it to 0.125 daily. It would help to have a Digoxin level in several days. I have also added some Feosol due to his iron deficiency anemia. I have ordered an ambulation study to make sure that we can qualify him for home oxygen on discharge. I have consulted Cloak Room Attendant in that regard. We will continue his IV Lasix for now. The patient has been instructed to take his Lasix in the morning and early afternoon as well as to continue his Albuterol breathing treatments. He received 2 grams of magnesium and I will recheck his magnesium level in the morning. He seems to be more short of breath today, but his O2 sats are greater than 90%. He still has fluid on his lungs so we will try to continue to diurese him there. Encourage good pulmonary hygiene. Will continue with his Rocephin and azithromycin for now. We will continue to monitor the patient closely and followup as needed. Dr. Frazier is the collaborating physician available for consultation. [facility][id number] [facility]ENTER[facility]ass
[2017-06-14] MEDS ORDERED: SODIUM CHL 0.9% 50ML MIN-BAG+ 50 ML IVPB ONE (20:04)
--- NOTE | 2017-06-14 20:05 | PCM.CORE ---
Physician DVT/VTE - Prophylaxis Currently: Patient already on anticoagulation therapy - Nurse DVT Assessment & Total Each Risk Factor Represents 3 Points: Age over 75 years, Medical PT with Hx of AL, CHF, Severe infection/sepsis Each Risk Factor is 1 Point: Varicose Veins/Edema Legs, Obesity (BMI >25) DVT Assessment Score: 8 - 5 or more Very High Risk Treatments: Early Ambulation *, Sequential Compression Device
[2017-06-14] MEDS ORDERED: ENOXAPARIN SODIUM 30 MG/0.3 ML SYG SUBCU SCH (20:30)
[2017-06-14] MEDS: FINASTERIDE 5 MG TAB PO SCH (20:40)
[2017-06-14] MEDS ORDERED: GABAPENTIN 300 MG CAP PO SCH (21:00)
[2017-06-14] MEDS ORDERED: cefTRIAXone SODIUM 1 GM in SODIUM CHL 0.9% 50ML MIN-BAG+ 50 ML IVPB SCH (22:00)
[2017-06-14] MEDS ORDERED: GABAPENTIN 300 MG CAP PO ONE (22:51)
[2017-06-14] MEDS: AZITHROMYCIN IV 500 MG in SODIUM CHLORIDE 0.9% 250ML 250 ML IVPB SCH (23:08)
[2017-06-15] MEDS: HYDROcodone 10MG/APAP 325MG 1 EA TAB PO SCH (06:30)
[2017-06-15] MEDS ORDERED: LEVOTHYROXINE SODIUM 0.025 MG TAB PO SCH (06:30)
[2017-06-15] MEDS: PANTOPRAZOLE SODIUM IV 40 MG VIAL IV SCH (06:31)
[2017-06-15] MEDS: INSULIN LISPRO 100 UNITS/ML PEN SUBCU SCH ×2 (07:07→11:52)
--- NOTE | 2017-06-15 07:17 | RAD ---
EXAM DESCRIPTION: XR CHEST 2 VIEWS CLINICAL HISTORY: Congestive heart failure COMPARISON: 06/14/2017 TECHNIQUE: PA/lateral FINDINGS: Cardiomegaly. Cardiac pacemaker. Vascular congestion. Bilateral pleural effusions similar to previous study. Increasing infiltrate right upper lobe and to lesser extent right lower lobe could be asymmetric edema or pneumonia. IMPRESSION: Bilateral pleural effusions and increasing infiltrate in the right lung cardiomegaly vascular congestion which may relate to congestive heart failure as indicated by the clinical scenario Electronically signed by: Pedro Dimas MD 06/15/2017 7:16 AM ARMORED CAR GUARD AND [employer]IVER
[2017-06-15] MEDS ORDERED: FERROUS SULFATE 325 MG TAB PO SCH (07:30)
[2017-06-15] MEDS: ALBUTEROL SULFATE 2.5 MG/3 ML VIAL NEB SCH ×2 (08:16→11:42)
[2017-06-15] MEDS: FUROSEMIDE INJ 40 MG/4 ML VIAL IV SCH (08:23)
[2017-06-15] MEDS: metFORMIN HCL 500 MG TAB PO SCH (08:23)
[2017-06-15] MEDS: FINASTERIDE 5 MG TAB PO SCH (08:23)
[2017-06-15] MEDS: SODIUM CHLORIDE 0.9% (FLUSH) 10 ML SYG IV SCH (08:23)
[2017-06-15] MEDS: HYDROcodone 10MG/APAP 325MG 1 EA TAB PO PRN (08:29)
[2017-06-15] MEDS ORDERED: ALLOPURINOL 100 MG TAB PO SCH (09:00)
[2017-06-15] MEDS ORDERED: TAMSULOSIN 0.4 MG CAP PO SCH (09:00)
[2017-06-15] MEDS ORDERED: DIGOXIN 0.125 MG TAB PO SCH (12:00)
[2017-06-15 14:51] VITALS: BP 121/88; TEMP 97; O2SAT 97
[2017-06-15] MEDS ORDERED: ENOXAPARIN SODIUM 40 MG/0.4 ML SYG SUBCU SCH (21:00)
[2017-06-15] MEDS ORDERED: AZITHROMYCIN 250 MG TAB PO SCH (22:00)
[2017-06-16] MEDS ORDERED: PANTOPRAZOLE SODIUM TAB 40 MG PO SCH (06:30)
--- NOTE | 2017-06-16 10:45 | DS ---
SUPERVISING PHYSICIAN: Jaguar Núñez MD DISCHARGE DIAGNOSIS: 1. Sepsis secondary to bilateral pneumonia with a temperature of 95.9, respiratory rate of 22 and 02 saturation of 89% with a heart rate of 97 on admission. 2. Exacerbation of congestive heart failure with BNP of 617 and lower extremity edema. His echocardiogram in 2016 shows a diastolic and systolic component with an ejection fraction of 35%. Showing improvement after initiation of higher doses of loop diuretics. 3. Exacerbation of chronic obstructive pulmonary disease with bilateral pneumonia, showing improvement after initiation of IV antibiotics therapy and bronchial hygiene. 4. Chronic renal insufficiency. 5. Iron-deficiency anemia, started on iron. 6. Elevated digoxin level, showing normalization prior to discharge. 7. Diabetes mellitus, type 2. REASON FOR HOSPITALIZATION: Mr. Dennis is a 81 year-old male patient who presented to the Emergency Room with shortness of breath for approximately one week. He did state his left side along his lateral ribs has been hurting for approximately two to three weeks, but over the last week his shortness of breath had worsened and in the last two days swelling in his lower extremities had increased. He also complained of some fatigue and about three or four days ago he quit taking his Lasix because he was having to get up in the middle of the night to urinate. Upon arrival in the Emergency Room, his 02 saturation was 89% and he had +2 edema. Oxygen was placed on him and his 02 saturation came up to the mid 90s. He was given some IV Lasix. His white count was normal at 5.8 with a hemoglobin of 11.2 and hematocrit of 34.8. Initial troponin was 0.02 with BNP 617. Urinalysis was within normal limits and digoxin level was elevated at 2.8. Chest x-ray per radiology interpretation showed worsening bilateral effusions and consolidations with persistent cardiomegaly. He was then admitted to the Medical/Surgical Floor for ongoing treatment and evaluation. LABORATORY: CBC showed white count 5,800. At discharge, it was 4,400. Hemoglobin at discharge was 9.8 and hematocrit 30.4 with platelet count 145, 000. Differential was without a left shift. Chemistries on admission showed normal electrolytes as well as at discharge normal electrolytes with potassium 3.6 with BUN 19, creatinine 1.47. Blood sugars were fairly well controlled between 104 and 143. Iron was low at 24 with TIBC of 324 with iron saturation of 7.3. Ferritin was normal at 36. Liver functions were within normal limits. He had an elevated BNP of 167, troponin 0.02. Urinalysis showed just a trace of blood, otherwise within normal limits. Dig level was initially elevated at 2.8, but prior to discharge was at 1.8. MICROBIOLOGY: He had two sets of blood cultures that remained negative at 24 hours. RADIOLOGY: Initial chest x-ray in the Emergency Department prior to admission per radiologic interpretation showed worsening bilateral effusions and consolidations with persistent cardiomegaly. He had multiple chest x-rays and on the morning of discharge, final chest x-ray per radiologic interpretation of a two view chest showed bilateral pleural effusions with increasing infiltrate in the right lung, cardiomegaly with vascular congestion which may be related to congestive heart failure. HOSPITAL COURSE: Mr. Dennis was admitted as noted above for exacerbation for congestive heart failure and chronic obstructive pulmonary disease with concerns for pneumonia. He was reinitiated on Lasix and showed good response with return of his oxygenation levels, but did require continuation of oxygen after an ambulatory study showed he had significant desaturation. He was initiated on antibiotics to include Rocephin and azithromycin and showed good clinical response. It was felt on the morning of discharge that he was clinically stable enough to be discharged to continue with outpatient treatment and management. PLAN: Mr. Dennis was discharged on 06/15/17 to have close clinical followup with Dr. Frazier as scheduled on 06/17/17. He was to resume his home medications as instructed. His Lasix was changed to 2 tablets in the morning, 20 mg in the morning at breakfast and 20 mg at 3 o'clock in the afternoon, to prevent him from having to get up in the middle of the night and therefore hopefully he will continue with his medication regimen. He was qualified for oxygen and was to wear oxygen 24/7 as directed with a nasal cannula. He was to return to the histologic should he have any questions or concerning symptoms. Diet at discharge was to be diabetic diet as tolerated. He was to increase his activity as tolerated. He will most likely need to have an echocardiogram at some point since his last one was well over two years previously. DISCHARGE MEDICATIONS: 1. Proventil nebulizers 2.5 mg q.4h. scheduled, #30. 2. Albuterol nebulizers 2.5 mg p.r.n. as needed, #30. 3. Azithromycin 250 mg, #3. 4. Cefdinir 300 mg twice daily, #20. 5. Ferrous sulfate 325 mg twice daily with food, #60. 6. Lasix 1 tablet at 3 o'clock in the afternoon with 20 mg, #30, and he was to take 2 tablets in the morning, #60. Condition at discharge was stable and improved. [facility][id number] [facility]
== END 2017-06-15 15:00 | disposition home health service (06) | DRG 871 ==
LOC: ER 18:04 → MS 21:03 → OBSVTOIN 21:03
PROVIDERS: ADMIT Nurse Practitioner Acute Care; ATTEND Nurse Practitioner Family
DX: A41.9 Sepsis, unspecified organism (principal); J18.9 Pneumonia, unspecified organism; I50.43 Acute on chronic combined systolic (congestive) and diastolic (congestive) heart failure; J44.0 Chronic obstructive pulmonary disease with (acute) lower respiratory infection; J44.1 Chronic obstructive pulmonary disease with (acute) exacerbation; I13.0 Hypertensive heart and chronic kidney disease with heart failure and stage 1 through stage 4 chronic kidney disease, or unspecified chronic kidney disease; R09.02 Hypoxemia; N18.9 Chronic kidney disease, unspecified; E11.22 Type 2 diabetes mellitus with diabetic chronic kidney disease; D50.9 Iron deficiency anemia, unspecified; R79.89 Other specified abnormal findings of blood chemistry; T50.1X6A Underdosing of loop [high-ceiling] diuretics, initial encounter; N40.0 Benign prostatic hyperplasia without lower urinary tract symptoms; E78.5 Hyperlipidemia, unspecified; E03.9 Hypothyroidism, unspecified; M81.0 Age-related osteoporosis without current pathological fracture; M19.90 Unspecified osteoarthritis, unspecified site; I48.0 Paroxysmal atrial fibrillation; Z85.118 Personal history of other malignant neoplasm of bronchus and lung; Z91.128 Patient's intentional underdosing of medication regimen for other reason; Y92.009 Unspecified place in unspecified non-institutional (private) residence as the place of occurrence of the external cause; Z95.0 Presence of cardiac pacemaker; Z88.8 Allergy status to other drugs, medicaments and biological substances; Z88.2 Allergy status to sulfonamides; Z87.891 Personal history of nicotine dependence; Z79.84 Long term (current) use of oral hypoglycemic drugs; Z79.891 Long term (current) use of opiate analgesic; Z79.899 Other long term (current) drug therapy; Z66 Do not resuscitate

== ENCOUNTER → 2017-06-17 | Outpatient (CLI) | payer MEDICARE, OTHER | END | disposition home or self-care (01) | LOC: GMAM 16:43 | PROVIDERS: ATTEND Family Medicine | DX: I50.22 Chronic systolic (congestive) heart failure (principal) ==

== ENCOUNTER 2017-06-25 10:00 | Inpatient (IN) | payer MEDICARE, OTHER ==
[2017-06-25] MEDS ORDERED: BUMETANIDE 0.25 MG/ML VIAL IV ONE (11:19)
--- NOTE | 2017-06-25 11:20 | ED.PDOC ---
History of Present Illness - General Chief Complaint: Respiratory Problem Stated Complaint: Weight gain, increased work of breathing Time Seen by Provider: 06/25/17 11:16 Source: patient, family Exam Limitations: no limitations - History of Present Illness Initial Comments: Akira Dennis 81 y/o male stated that he had been gaining weight with progressive worsening SOB the last 3 weeks;No chest pains;Had just got his O2 7 days ago but stated not working.Has history of CHF. Timing/Duration: other - 3 weeks Severity: moderate Improving Factors: cold therapy Worsening Factors: nothing Associated Symptoms: shortness of breath, other - see hpi Allergies/Adverse Reactions: Allergies Aspirin Allergy (Verified 06/25/17 10:40) Hydrochlorothiazide Allergy (Verified 06/25/17 10:40) Lisinopril Allergy (Verified 06/25/17 10:40) Omeprazole [From Prilosec] Allergy (Verified 06/25/17 10:40) Paroxetine [From Paxil] Allergy (Verified 06/25/17 10:40) Rivaroxaban [From Xarelto] Allergy (Verified 06/25/17 10:40) Sitagliptin [From Januvia] Allergy (Verified 06/25/17 10:40) Sulfa Drugs Allergy (Verified 06/25/17 10:40) Terazosin Allergy (Verified 06/25/17 10:40) Home Medications: Ambulatory Orders Finasteride 10 mg PO BID 05/12/12 Metformin HCl 1,000 mg PO BID 05/12/12 Potassium Chloride [Potassium Chloride ER] 10 meq PO BID 05/12/12 Tamsulosin HCl 0.4 mg PO DAILY 05/12/12 Digoxin 0.125 mg PO BID 10/05/12 Cholecalciferol [Vitamin D3] 1,000 unit PO DAILY 05/23/15 Cranberry-Vitamin C-Vitamin E [Cranberry Plus Vitamin C 4200-20-3 mg-Unit] 1 cap PO DAILY 05/23/15 HYDROcodone 10MG/APAP 325MG [Othello 10/325] 1 - 2 tab PO Q4H PRN 05/23/15 Allopurinol [Zyloprim] 100 mg PO DAILY 04/01/17 Gabapentin 600 mg PO BEDTIME 05/19/17 Levothyroxine Sodium 50 mcg PO DAILY@0700 05/19/17 Albuterol Sulfate Nebs [Proventil Nebs] 2.5 mg NEB PRN PRN #30 vial 06/15/17 Albuterol Sulfate Nebs [Proventil Nebs] 2.5 mg NEB Q4HR #30 vial 06/15/17 Ferrous Sulfate [Feosol Tab] 325 mg PO BIDFD #60 tab 06/15/17 Furosemide [Lasix] 1 tablet PO 1500 #30 tab 06/15/17 Furosemide [Lasix] 2 tablet PO QAM #60 tab 06/15/17 Review of Systems - Review of Systems Constitutional: States: no symptoms reported EENTM: States: no symptoms reported Respiratory: States: see HPI, short of breath Cardiology: States: see HPI Gastrointestinal/Abdominal: States: no symptoms reported Genitourinary: States: no symptoms reported Musculoskeletal: States: no symptoms reported Skin: States: no symptoms reported Neurological: States: no symptoms reported All other Systems: Reviewed and Negative, No Change from Baseline Past Medical History (General) - Patient Medical History Hx Seizures: No Hx Stroke: No Hx Dementia: No Hx Asthma: No Hx of COPD: No Hx Cardiac Disorders: Yes Hx Congestive Heart Failure: Yes Hx Pacemaker: Yes Hx Hypertension: Yes Hx Thyroid Disease: No Hx Diabetes: Yes Hx Gastroesophageal Reflux: No Hx Renal Disease: No Hx Cancer: Yes - lung CA; treated with chemo and radiation Hx of HIV: No Hx Hepatitis C: No Hx MRSA: No Surgical History: appendectomy, cholecystectomy, pacemaker, other - Vaccination History Hx Tetanus, Diphtheria Vaccination: Yes Hx Influenza Vaccination: Yes - 2016 Hx Pneumococcal Vaccination: Yes - 2017 - Social History Hx Tobacco Use: Yes - Quit 1999 Hx Chewing Tobacco Use: No Hx Alcohol Use: No - HX OF ETOH BUT QUIT ABOUT 12YR AGO Hx Substance Use: No Hx Substance Use Treatment: No Hx Depression: No Hx Physical Abuse: No Hx Emotional Abuse: No Hx Suspected Abuse: No - Activities of Daily Living Grooming Ability: Independent Eating (Feeding) Ability: Independent Toileting Ability: Independent - Female History Patient : No Family Medical History - Family History Father Family History: No Known Living Status: Hx Family Hypertension: Yes - mother Hx Family Diabetes: Yes - several family member Hx Family Cancer: Yes - mom;brother-colon ca Physical Exam - Physical Exam General Appearance: Alert, Comfortable, No apparent distress Eye Exam: bilateral normal Ears, Nose, Throat: hearing grossly normal, normal ENT inspection, normal pharynx Neck: non-tender, full range of motion, supple Respiratory: no respiratory distress, rales - bases Cardiovascular/Chest: normal peripheral pulses, no gallop, no murmur Peripheral Pulses: radial,right: 2+, radial,left: 2+ Gastrointestinal/Abdominal: normal bowel sounds, non tender, soft, no organomegaly Back Exam: normal inspection, no CVA tenderness, no vertebral tenderness Extremity: non-tender, no calf tenderness Neurologic: alert, normal mood/affect, oriented x 3 Skin Exam: normal color, warm/dry Lymphatic: no adenopathy Progress - Progress Progress: 06/25/17 12:05 Last Vital Signs Temp 97.7 F 06/25/17 10:28 Pulse 60 06/25/17 10:28 Resp 22 06/25/17 10:28 BP 131/60 06/25/17 10:28 Pulse Ox 96 06/25/17 10:28 - Results/Orders Results/Orders: Abnormal Lab Results 06/25/17 06/25/17 06/25/17 11:52 11:52 11:52 RBC 3.85 L Hgb 10.3 L Hct 32.3 L MCH 26.7 L MCHC 31.9 L RDW 17.3 H MPV 6.8 L Absolute Lymphs (auto) 0.60 L Lymphocytes % 11.9 L PT 15.9 H D-Dimer, Quantitative 274 H* Carbon Dioxide 34 H Anion Gap 10.6 L Random Glucose 114 H Creatine Kinase 25 L B-Natriuretic Peptide 550.0 H* Digoxin 2.2 H Laboratory Tests 06/25/17 06/25/17 06/25/17 11:52 11:52 11:52 WBC 5.1 RBC 3.85 L Hgb 10.3 L Hct 32.3 L MCV 84.0 MCH 26.7 L MCHC 31.9 L RDW 17.3 H Plt Count 143 MPV 6.8 L Absolute Neuts (auto) 3.90 Absolute Lymphs (auto) 0.60 L Absolute Monos (auto) 0.40 Absolute Eos (auto) 0.10 Absolute Basos (auto) 0.00 Neutrophils % 76.8 Lymphocytes % 11.9 L Monocytes % 8.2 Eosinophils % 2.5 Basophils % 0.6 PT 15.9 H INR 1.410 PTT (SP) 35.5 D-Dimer, Quantitative 274 H* Sodium 142 Potassium 4.6 Chloride 102 Carbon Dioxide 34 H Anion Gap 10.6 L BUN 18 Creatinine 1.21 BUN/Creatinine Ratio 14.9 Random Glucose 114 H Serum Osmolality 285.9 Calcium 9.1 Magnesium 2.0 Total Bilirubin 0.7 Direct Bilirubin 0.1 Indirect Bilirubin 0.6 AST 13 ALT 10 Alkaline Phosphatase 80 Creatine Kinase 25 L CK-MB (CK-2) 1.1 CK-MB (CK-2) % Not Reportable Troponin I 0.02 B-Natriuretic Peptide 550.0 H* Serum Total Protein 6.8 Albumin 3.5 Digoxin 2.2 H - EKG/XRAY/CT EKG: Sinus, nonspecific ST T wave Chg Comments: heart rate-60;LAD XRAY: chest - increasing left basilar infiltrate Departure - Departure Clinical Impression: Congestive heart failure (CHF) Qualifiers: Congestive heart failure type: unspecified congestive heart failure type Congestive heart failure chronicity: chronic Qualified Code(s): I50.9 - Heart failure, unspecified Time of Disposition: 14:03 Departure Forms: ED Discharge - Pt. Copy, Patient Portal Self Enrollment Referrals: Pedro Frazier MD [Primary Care Provider] - 1-2 Weeks Home Medications: Ambulatory Orders Finasteride 10 mg PO BID 05/12/12 Metformin HCl 1,000 mg PO BID 05/12/12 Potassium Chloride [Potassium Chloride ER] 10 meq PO BID 05/12/12 Tamsulosin HCl 0.4 mg PO DAILY 05/12/12 Digoxin 0.125 mg PO BID 10/05/12 Cholecalciferol [Vitamin D3] 1,000 unit PO DAILY 05/23/15 Cranberry-Vitamin C-Vitamin E [Cranberry Plus Vitamin C 4200-20-3 mg-Unit] 1 cap PO DAILY 05/23/15 HYDROcodone 10MG/APAP 325MG [Othello 10/325] 1 - 2 tab PO Q4H PRN 05/23/15 Allopurinol [Zyloprim] 100 mg PO DAILY 04/01/17 Gabapentin 600 mg PO BEDTIME 05/19/17 Levothyroxine Sodium 50 mcg PO DAILY@0700 05/19/17 Albuterol Sulfate Nebs [Proventil Nebs] 2.5 mg NEB PRN PRN #30 vial 06/15/17 Albuterol Sulfate Nebs [Proventil Nebs] 2.5 mg NEB Q4HR #30 vial 06/15/17 Ferrous Sulfate [Feosol Tab] 325 mg PO BIDFD #60 tab 06/15/17 Furosemide [Lasix] 1 tablet PO 1500 #30 tab 06/15/17 Furosemide [Lasix] 2 tablet PO QAM #60 tab 06/15/17 Decision To Admit - Decistion To Admit Decision to Admit Reason: Admit from ER Decision to Admit Date: 06/25/17 - D/W Jes James -ANP/Hospitalist Decision to Admit Time: 14:03
--- NOTE | 2017-06-25 12:56 | RAD ---
EXAM DESCRIPTION: Chest,1 View CLINICAL HISTORY: sob COMPARISON: 15 June 2017 TECHNIQUE: AP portable chest FINDINGS: A pacemaker with a ventricular lead is seen in place. Diffuse interstitial infiltrate is observed. There has been interval worsening in aeration of the left lung base. There is a probable left pleural effusion. Cardiomegaly is evident. IMPRESSION: A background of chronic interstitial lung disease is observed with worsening infiltrate in the left lung base. Electronically signed by: Immanuel Melissa MD 06/25/2017 12:55 PM DIESEL ENGINE TESTER
--- NOTE | 2017-06-25 15:18 | HP ---
SUPERVISING PHYSICIAN: Pedro Frazier M.D. CHIEF COMPLAINT: Shortness of breath and weight gain. HISTORY OF PRESENT ILLNESS: This is a 81 year-old male patient who was recently in the hospital and discharged on 06/15/17 for left lower lobe pneumonia. He had been on Rocephin and azithromycin, and was recently discharged. He has a long history of congestive heart failure and chronic obstructive pulmonary disease as well as diabetes and renal insufficiency. He has had progressive weight gain over the last few days and also some progressively worsening shortness of breath. He was discharged on Lasix. He said that Tr did not have his new prescription of Lasix, although he has seen Dr. Frazier since his discharge. He just said they did not have it so he was not going to get the Lasix. He also said his oxygen tank was just filled and although it said 100%, he said there was no oxygen coming out of it. His granddaughter and had both told me that he is very poorly compliant with taking his Lasix as he does not like to take it because it makes him go to the bathroom all the time. He also does not like to take his breathing treatments because they make him shaky. He only wears his oxygen sporadically. He was brought to the Emergency Room today and was found to have an O2 sat that was 84% . His respiratory rate was 22. He was afebrile. Heart rate was 63 and blood pressure 142/72. Chest x-ray per radiology interpretation shows a background of chronic interstitial lung disease that is observed with worsening infiltrate on the left lung base. Laboratory has WBCs of 5.1 with hemoglobin 10.3, hematocrit 32.3. D-dimer was slightly elevated at 274. Electrolytes were basically within normal limits with the exception of his carbon dioxide was 34 and glucose was 114. He has a BNP of 550. His initial troponin was negative. Digoxin level was high at 2.2. His ankles were markedly swollen with +2 to 3 pitting edema bilaterally. I was called for hospital admission. PAST MEDICAL HISTORY: 1. Acute renal insufficiency. 2. Benign prostatic hypertrophy. 3. Cervical neuropathy. 4. Chronic obstructive pulmonary disease. 5. History of lung cancer. 6. Hypertension. 7. Hyperlipidemia. 8. Hypothyroidism. 9. Osteoporosis. 10. Osteoarthritis. 11. Paroxysmal atrial fibrillation. 12. SVT. 13. Diabetes mellitus type 2. 14. Congestive heart failure with diastolic/systolic dysfunction and an ejection fraction of 35% from an echo in [address] Chu in [place]. 15. Diverticular abscess. 16. Symptomatic cholelithiasis with a recent cholecystectomy in May 2017. PAST SURGICAL HISTORY: 1. Open reduction and internal fixation of right hip. 2. Back surgeries times 2. 3. Recent laparoscopic cholecystectomy with intraoperative angiography and wedge biopsy of the right lobe of the liver in May [address] Bianchi. 4. Pacemaker placement. 5. Appendectomy as a child. CURRENT MEDICATIONS: Per the EMR and awaiting verification. ALLERGIES: PRILOSEC, SULFA, GABAPENTIN, JANUVIA, LISINOPRIL, HYDROCHLOROTHIAZIDE, TERAZOSIN, XARELTO. SOCIAL HISTORY: He is retired. He is . He has 2 children. He has a previous history of cigarette smoking but quit in 1999. He has a previous history of alcohol use but quit several years ago and denies any illicit drug use. REVIEW OF SYSTEMS: Positive for fatigue. Negative for fever or weight changes. HEENT: Negative for ear pain, vision changes, sore throat or sinus symptoms. RESPIRATORY: Positive for shortness of breath. Negative for coughing or wheezing. CARDIAC: Negative for chest pain, tachycardia, palpitations. GASTROINTESTINAL: Negative for abdominal pain, nausea, vomiting, diarrhea or constipation. GENITOURINARY: Negative for polyuria, nocturia or dysuria. MUSCULOSKELETAL: Negative for myalgias or arthralgias. EXTREMITIES: Positive for pedal edema. NEUROLOGIC: Negative for headaches, dizziness or seizures. PHYSICAL EXAMINATION: VITAL SIGNS: He is afebrile, heart rate 71, blood pressure 137/72, respiratory rate 16, O2 sat is 93% on 2 liters nasal cannula. GENERAL: This is a 81 year-old male patient who is in slight respiratory distress sitting in his hospital bed. HEENT: Normocephalic and atraumatic. Pupils are equal and reactive. Oropharynx is clear. Oral mucous membranes are moist. NECK: Supple without mass. There is no discernible jugular venous distention. RESPIRATORY: Scattered crackles throughout and diminished at the bases, especially on the left side. No wheezing. CHEST: There is equal rise and fall of the chest with inspiration and expiration. CARDIOVASCULAR: Regular rate, irregular rhythm. GASTROINTESTINAL: Abdomen is soft, nondistended, non-tender. Bowel sounds are positive. EXTREMITIES: Bilateral pitting edema to his lower extremities. No cyanosis or clubbing. NEUROLOGIC: He is awake, alert and oriented times three. LABORATORY: Labs and films are as per the history of present illness. ASSESSMENT: 1. Exacerbation of congestive heart failure with diastolic systolic dysfunction and an ejection fraction of 35% from an echocardiogram [place] [address] Chu, tmd teacher. He also has a BNP on admission of 550. 2. Left lower lobe pneumonia community acquired recently discharged from the hospital for treatment that included Rocephin, azithromycin and breathing treatments. 3. Poor medical compliance. 4. Diabetes mellitus. 5. Chronic renal insufficiency with a baseline creatinine of 1.4. 6. Elevated Digoxin level. PLAN: We will admit the patient to the hospital. I have initiated pneumonia guidelines and we will start Levaquin since he has been treated with Rocephin and azithromycin within the last several weeks. He received some Bumex in the [facility] and I am now going to give him some IV Lasix. There needs to be a clarification on his dosage as the patient is not sure about his dosing and said there were some changes as well as he says he did not get his prescription after discharge. He also has an elevated Digoxin level, so I will hold his Digoxin overnight. I will recheck his Digoxin level in the morning. He had an elevated Digoxin level at his last admission and his Digoxin had been decreased from 0.125 mg b.i.d. to 0.125 mg daily. His dosing was not adjusted on discharge which may have resulted in a higher Digoxin level. I have discontinued his old home Digoxin of b.i.d. dosing and I have restarted his Digoxin at 0.125 mg daily starting on Thursday. There needs to be close monitoring of his dosing on discharge. I have also started Accu-Cheks with sliding scale. I am awaiting his medications to be verified and I will restart those with the exception of his p.o. Lasix as he is on IV Lasix. It would be beneficial for us to review all of his medications to make sure that he is in compliance with that. I am not sure why his oxygen tank was not full, so there may be a need for checking on his equipment by [facility]. Otherwise we will continue to monitor the patient closely and follow as needed. Dr. Frazier is the collaborating physician available for consultation. [facility][id number] [facility]
[2017-06-25] MEDS ORDERED: IV SET AND CAP CHANGE INJ INJ SCH (17:00)
[2017-06-25] MEDS ORDERED: ALBUTEROL SULFATE 2.5 MG/3 ML VIAL NEB PRN (17:00)
[2017-06-25] MEDS ORDERED: GLUCAGON INJ 1 MG VIAL SUBCU PRN (17:12)
[2017-06-25] MEDS ORDERED: DEXTROSE 50% 25 GM/50 ML SYG IV PRN (17:12)
[2017-06-25] MEDS: levoFLOXacin 750MG IV 750 MG in PREMIX BAG 1 BAG IVPB SCH (17:21)
[2017-06-25] MEDS: SODIUM CHLORIDE 0.9% (FLUSH) 10 ML SYG IV PRN (17:22)
[2017-06-25] MEDS ORDERED: PANTOPRAZOLE SODIUM IV 40 MG VIAL IV SCH (17:30)
[2017-06-25] MEDS ORDERED: ENOXAPARIN SODIUM 40 MG/0.4 ML SYG SUBCU ONE (17:59)
[2017-06-25] MEDS ORDERED: FUROSEMIDE INJ 40 MG/4 ML VIAL IV SCH (18:00)
[2017-06-25] MEDS: ENOXAPARIN SODIUM 40 MG/0.4 ML SYG SUBCU SCH ×2 (18:05→18:10)
[2017-06-25] MEDS ORDERED: SODIUM CHLORIDE 0.65% NASAL SPRAY 45 ML BTTL BNAS PRN (19:51)
[2017-06-25] MEDS ORDERED: LEVOTHYROXINE SODIUM 0.025 MG TAB ONE (20:01)
[2017-06-25] MEDS: IPRATROPIUM/ALBUTEROL 3 ML VIAL INH SCH (20:30)
[2017-06-25] MEDS ORDERED: NON-FORMULARY MEDICATION 1 EA MIS (Potassium Chloride [Potassium Chloride Er] 10 MEQ) PO SCH (21:00)
[2017-06-25] MEDS ORDERED: metFORMIN HCL 500 MG TAB PO SCH (21:00)
[2017-06-25] MEDS: GABAPENTIN 300 MG CAP PO SCH (21:09)
[2017-06-25] MEDS: FINASTERIDE 5 MG TAB PO SCH (21:09)
[2017-06-25] MEDS ORDERED: NON-FORMULARY MEDICATION 1 EA MIS (Temazepam [Restoril] 30 MG) PO PRN (21:34)
[2017-06-25] MEDS ORDERED: HYDROcodone 10MG/APAP 325MG 1 EA TAB PO PRN (21:34)
[2017-06-25] MEDS ORDERED: TEMAZEPAM 15 MG CAP ONE (21:49)
[2017-06-25] MEDS: INSULIN LISPRO 100 UNITS/ML PEN SUBCU SCH (21:59)
[2017-06-26] MEDS: HYDROcodone 10MG/APAP 325MG 1 EA TAB PO SCH ×2 (05:42→17:52)
[2017-06-26] MEDS ORDERED: NON-FORMULARY MEDICATION 1 EA MIS (Levothyroxine Sodium [Levothyroxine Sodium] 50 MCG) PO SCH (07:00)
[2017-06-26] MEDS: INSULIN LISPRO 100 UNITS/ML PEN SUBCU SCH ×3 (07:31→16:23)
[2017-06-26] MEDS: POTASSIUM CHLORIDE 20 MEQ TAB PO SCH (07:34)
--- NOTE | 2017-06-26 07:53 | RAD ---
Study: Frontal and Lateral Views of the Chest. Indication: Pneumonia Comparison: June 25, 2017. Impression: Single lead AICD. Cardiomegaly. Patchy consolidative changes in the lung bases appear stable. Moderate left and small right pleural effusions appear stable. No pneumothorax. Degenerative changes of the spine noted. Electronically signed by: Thomas Rivas MD 06/26/2017 7:51 AM PHLEBOTOMY LAB ASSISTANT
[2017-06-26] MEDS ORDERED: FUROSEMIDE 40 MG TAB ONE (08:06)
[2017-06-26] MEDS ORDERED: TEMAZEPAM 15 MG CAP PO PRN (08:30)
[2017-06-26] MEDS: IPRATROPIUM/ALBUTEROL 3 ML VIAL INH SCH ×4 (08:52→20:43)
[2017-06-26] MEDS ORDERED: FUROSEMIDE PO SCH ×2 (09:00→15:00)
[2017-06-26] MEDS: SODIUM CHLORIDE 0.9% (FLUSH) 10 ML SYG IV PRN (09:08)
[2017-06-26] MEDS: ALLOPURINOL 100 MG TAB PO SCH (09:09)
[2017-06-26] MEDS: TAMSULOSIN 0.4 MG CAP PO SCH (09:09)
[2017-06-26] MEDS: metFORMIN HCL 500 MG TAB PO SCH ×2 (09:09→16:52)
[2017-06-26] MEDS: FINASTERIDE 5 MG TAB PO SCH ×2 (09:09→20:36)
[2017-06-26] MEDS ORDERED: DIGOXIN 0.125 MG TAB PO SCH (12:00)
[2017-06-26] MEDS ORDERED: FUROSEMIDE INJ 40 MG/4 ML VIAL IV ONE (14:02)
--- NOTE | 2017-06-26 14:48 | PN ---
DATE: 06/26/17 SUBJECTIVE: The patient very much wishes to go home, but is noticeably dyspneic and short of breath upon even minimal exertion. He describes significant orthopnea in which his nose tends to plug up and he feels he can breathe better when he is sitting up instead of lying down. He is trying to lie down with his head slightly elevated as well as his lower extremities elevated to assist with the edema. He has not had significant improvement in the edema and, in fact, it is still present with pitting up to the mid abdominal wall bilaterally, suggesting a degree of anasarca. He volunteered that he had drank about 4 large glasses of water today thinking the extra fluid would be important for him getting better. He was informed that with significant fluid retention, he needs to be on a significant fluid restriction component. He is also requesting from the nurses to up his oxygen flow whenever his nose tends to plug up. He is encouraged to use nasal saline to help the dryness in the nose, but also to maintain a pulse oximetry only between 90% and 93% or 94% instead of 97% to 100%, where he would like to be many times. OBJECTIVE: VITAL SIGNS: Afebrile. Pulse 72. Blood pressure 125/73. Pulse oximetry 97%, on 2 liters, up to 100% with adjustment down by respiratory in progress. His weight has gone up slightly as well, up to 91.76 kg with the built-in bed scale used. LUNGS: Diminished breath sounds with some rales present in the lower lobes bilaterally. Breath sounds are slightly better on the left than the right. HEART: Regular. Pacemaker in place. ABDOMEN: Soft with some pitting edema up to the periumbilical region. EXTREMITIES: The thighs and calves of both legs seem to be quite firm and have noticeable pitting edema present up into the 3 to 4+ range. LABORATORY: Sugar this morning was 100 fasting, up to 198 before lunch. Blood count was 11.2 hemoglobin, white count 5,300. His original blood gas showed pH 7.41 with PO2 low at 70 with an elevated PCO2 of 53. Blood cultures are negative. Repeat chest x-ray is performed and reveals bibasilar patchy consolidative changes with some slight bilateral pleural effusions, stable otherwise noted. ASSESSMENT: 1. Chronic congestive heart failure with an acute exacerbation with a diastolic and systolic dysfunctional component with ejection fraction of only 35% with an echocardiogram performed in May of [address] Chu, petroleum refinery laborer. BNP on admission is 550. 2. Left lower lobe pneumonia, community acquired, recently discharged from the hospital which was treated with Rocephin and azithromycin and now being treated with Levaquin. 3. Poor medical compliance at home. 4. History of significant orthopnea and pedal edema with anasarca secondary to the significant chronic congestive heart failure, requiring fluid restrictions and ongoing loop diuresis and potassium supplementation. 5. Diabetes mellitus on oral therapy. 6. Chronic renal insufficiency with a baseline creatinine of 1.4. 7. Elevated digoxin level, returning towards normal after being held with dosage reduced from 0.125 mg b.i.d. to only daily. PLAN: The patient is educated on the importance of fluid restriction. We will restrict to 1200 mL and observe closely. Observe weight change by tomorrow. Increase diuresis to the Lasix 20 mg b.i.d. with a single dose of 40 mg to be given now. Reevaluate in the morning. If showing some improvement, may be able to continue home with fluid restrictions. Special attention to keeping saturations only at 90% to 93% instead of higher to help reduced the significant tendency to have CO2 retention as noted. Continue with Levaquin for possible underlying pneumonia and close followup suggested and reevaluation in the morning. [facility][id number] [facility]
[2017-06-26] MEDS: PANTOPRAZOLE SODIUM TAB 40 MG PO SCH (16:53)
[2017-06-26] MEDS: levoFLOXacin 750MG IV 750 MG in PREMIX BAG 1 BAG IVPB SCH (16:53)
[2017-06-26] MEDS: FUROSEMIDE INJ 20 MG/2 ML VIAL IV SCH (16:53)
[2017-06-26] MEDS: GABAPENTIN 300 MG CAP PO SCH (20:36)
[2017-06-27] MEDS: INSULIN LISPRO 100 UNITS/ML PEN SUBCU SCH ×2 (00:02→07:08)
[2017-06-27] MEDS: PANTOPRAZOLE SODIUM TAB 40 MG PO SCH (05:48)
[2017-06-27] MEDS: HYDROcodone 10MG/APAP 325MG 1 EA TAB PO SCH (05:49)
[2017-06-27] MEDS ORDERED: LEVOTHYROXINE SODIUM 0.025 MG TAB PO SCH (06:30)
[2017-06-27] MEDS: POTASSIUM CHLORIDE 20 MEQ TAB PO SCH (07:42)
[2017-06-27] MEDS: metFORMIN HCL 500 MG TAB PO SCH (07:43)
[2017-06-27] MEDS: FINASTERIDE 5 MG TAB PO SCH (08:28)
[2017-06-27] MEDS: FUROSEMIDE INJ 20 MG/2 ML VIAL IV SCH (08:28)
[2017-06-27] MEDS: ALLOPURINOL 100 MG TAB PO SCH (08:28)
[2017-06-27] MEDS: TAMSULOSIN 0.4 MG CAP PO SCH (08:28)
[2017-06-27] MEDS ORDERED: FUROSEMIDE 40 MG TAB PO SCH (09:00)
[2017-06-27] MEDS: IPRATROPIUM/ALBUTEROL 3 ML VIAL INH SCH (09:04)
[2017-06-27 10:05] VITALS: BP 118/62; TEMP 97.6; O2SAT 92
--- NOTE | 2017-06-27 11:58 | DS ---
DISCHARGE DIAGNOSES: 1. Chronic congestive heart failure with an acute exacerbation with combined diastolic and systolic components with an ejection fraction of only 35% with an echocardiogram performed in May of [address] Chu, valuation consultant with BNP decreasing from 550 to 352 before discharge requiring significant fluid restrictions and diuresis. 2. Left lower lobe pneumonia, community acquired, recently discharged from the hospital treated with Rocephin and azithromycin at that time but now being changed to Levaquin to be continued as an outpatient with no cultures positive. 3. History of poor medical compliance at home. 4. History of significant orthopnea and pedal edema with anasarca secondary to significant chronic congestive heart failure requiring fluid restrictions and diuresis with potassium supplementation and showing improvement on day of discharge. 5. Diabetes mellitus on oral therapy. 6. Chronic renal insufficiency with a baseline creatinine of 1.4. 7. Initial elevated digoxin level returning towards normal after holding a dose and reducing his home medications from b.i.d. to one daily of the 0.125 mg dose. HISTORY OF PRESENT ILLNESS: This 81 year-old white male is admitted to the hospital because of worsening shortness of breath and significant edema. He was recently in the hospital with a left lower lobe pneumonia just 10 days prior to his current admission. Dr. Frazier has seen him since discharge but apparently he was unable to get his Lasix medication since his discharged in stable condition and has subsequently had a fairly significant weight gain and significant edema state worsening. He has required more oxygenation and was noticeably hypoxic and dyspneic requiring ongoing support and followup. He was placed in the hospital with fluid restrictions, diuresis, potassium supplementation and close clinical followup as well as increasing activity supervised to the point that he would safely be able to return home. LABORATORY: White count stayed normal at 5,000 while his hemoglobin dropped from 11.2 down to 9.8 even with further hemoconcentration because of the diuresis and followup is necessary. D-dimer was 274, INR 1.4. Blood showed a 7.4 with 02 of 70, low, and C02 elevated at 53. Chemistries show elevated C02 suggesting a chronicity to the elevated C02. BUN was elevated slightly at 23, probably secondary to some of the diuresis, potassium at discharge was 1.37. Osmolality was normal at 282. Liver enzymes normal. Troponin 0.02. Beta natriuretic peptide decreased from 550 to 356 before discharge. TSH normal at 3.39. Stool guaiac was negative as part of the anemia workup. Blood cultures are negative. Chest x-ray initially showed interstitial lung observation with an infiltrate in the left lung base. Repeat chest x-ray showed significant clearing of the infiltrative process. HOSPITAL COURSE: The patient was feeling much improved on the morning of discharge and was ready for continued outpatient followup and therapy. He initially was not placed on adequate fluid restrictions and when that was put into place as well as some increased diuresis, he responded overnight with improvement of the anasarca pedal edema and swelling as well as his pulmonary edema symptomatic symptoms noted. The patient, in fact, said he felt 100% better on the morning of discharge. This again emphasized the importance of his taking adequate diuresis with followup in the clinic and with fluid restrictions because before he was under the impression that he was encouraged to drink more and more fluids. The fact that he did not take his diuresis for 10 days after his last discharge no doubt contributed to his deteriorated condition requiring specific treatment and support. PLAN: The patient is discharged home to have followup with primary care physician, Mr. Frazier, the middle of next week. He will also have followup of the anemia. Some further stool tests are in order which can be followed up in the clinic under Dr. Frazier's supervision. He is to call the first of next week for the clinic appointment since they are closed today. Please refer to medication list. He is to limit his fluids to 1 and 1/2 quarts or less per da and observe his dry weight in the morning and note a weight gain of over 3 or 4 pounds and to communicate this to Dr. Frazier's clinic for ongoing decisions on clinical management. Return if not improving. #[id number] [facility]
[2017-06-27] MEDS ORDERED: DIGOXIN 0.125 MG TAB PO SCH (12:00)
== END 2017-06-27 10:34 | disposition home or self-care (01) | DRG 291 ==
LOC: ER 10:00 → MS 15:17
PROVIDERS: ADMIT Nurse Practitioner Acute Care; ATTEND Emergency Medicine
DX: I13.0 Hypertensive heart and chronic kidney disease with heart failure and stage 1 through stage 4 chronic kidney disease, or unspecified chronic kidney disease (principal); I50.43 Acute on chronic combined systolic (congestive) and diastolic (congestive) heart failure; J18.9 Pneumonia, unspecified organism; J44.0 Chronic obstructive pulmonary disease with (acute) lower respiratory infection; E11.22 Type 2 diabetes mellitus with diabetic chronic kidney disease; N18.9 Chronic kidney disease, unspecified; N40.0 Benign prostatic hyperplasia without lower urinary tract symptoms; E78.5 Hyperlipidemia, unspecified; E03.9 Hypothyroidism, unspecified; M81.0 Age-related osteoporosis without current pathological fracture; M19.90 Unspecified osteoarthritis, unspecified site; I48.0 Paroxysmal atrial fibrillation; Z66 Do not resuscitate; Z85.118 Personal history of other malignant neoplasm of bronchus and lung; Z95.0 Presence of cardiac pacemaker; Z88.2 Allergy status to sulfonamides; Z88.8 Allergy status to other drugs, medicaments and biological substances; Z87.891 Personal history of nicotine dependence

== ENCOUNTER → 2017-07-03 | Outpatient (CLI) | payer MEDICARE, OTHER | LOC: GMAM 13:16 | PROVIDERS: ATTEND Family Medicine | DX: I50.22 Chronic systolic (congestive) heart failure (principal) ==

== ENCOUNTER → 2017-07-17 | Outpatient (CLI) | payer MEDICARE, OTHER | LOC: GMAM 10:58 | PROVIDERS: ATTEND Family Medicine | DX: I50.22 Chronic systolic (congestive) heart failure (principal) ==

== ENCOUNTER → 2017-08-17 | Outpatient (CLI) | payer MEDICARE, OTHER | LOC: YCHH 09:35 | PROVIDERS: ATTEND Family Medicine | DX: E11.21 Type 2 diabetes mellitus with diabetic nephropathy (principal); I50.22 Chronic systolic (congestive) heart failure; D50.9 Iron deficiency anemia, unspecified; Z79.899 Other long term (current) drug therapy ==

== ENCOUNTER → 2017-11-26 | Outpatient (CLI) | payer MEDICARE, OTHER | LOC: GMAM 15:12 | PROVIDERS: ATTEND Family Medicine | DX: E55.9 Vitamin D deficiency, unspecified (principal); Z12.5 Encounter for screening for malignant neoplasm of prostate | CPT/HCPCS: 82306; G0103 ==

== ENCOUNTER → 2018-03-03 | Outpatient (CLI) | payer MEDICARE | LOC: GMAM 10:33 | PROVIDERS: ATTEND Family Medicine | DX: E03.9 Hypothyroidism, unspecified (principal); E55.9 Vitamin D deficiency, unspecified ==

== ENCOUNTER → 2018-06-07 | Outpatient (CLI) | payer MEDICARE | LOC: GMAH 11:39 | PROVIDERS: ATTEND Family Medicine | DX: E03.9 Hypothyroidism, unspecified (principal); E55.9 Vitamin D deficiency, unspecified ==

== ENCOUNTER → 2019-03-15 | Outpatient (CLI) | payer MEDICARE | LOC: GMAM 14:14 | PROVIDERS: ATTEND Family Medicine | DX: Z79.899 Other long term (current) drug therapy (principal); E83.51 Hypocalcemia; R06.02 Shortness of breath ==

== ENCOUNTER → 2019-03-16 | Outpatient (CLI) | payer MEDICARE ==
--- NOTE | 2019-03-17 16:08 | US ---
EXAM DESCRIPTION: Bladder CLINICAL HISTORY: RETENTION OF URINE COMPARISON: None. TECHNIQUE: 2-D sonography FINDINGS: Sonography demonstrates a normal appearance of a prevoid bladder. A post void residual volume of 10.91 mL is calculated. IMPRESSION: A post void residual of 10.91 mL is calculated. Electronically signed by: Immanuel Melissa MD 03/17/2019 4:07 PM CDT
== END ==
LOC: US 13:40
PROVIDERS: ATTEND Family Medicine
DX: R33.9 Retention of urine, unspecified (principal)

== ENCOUNTER → 2019-04-25 | Outpatient (CLI) | payer MEDICARE ==
--- NOTE | 2019-04-26 11:00 | RAD ---
EXAM DESCRIPTION: UGI: Rad-Fluoroscopy. CLINICAL HISTORY: DYSPHAGIA COMPARISON: None TECHNIQUE: Preliminary AP washer assembler fluoroscopic image.. The patient attempted to barium pill with water, without success. The patient swallowed gas-producing granules, water, and heavy density barium under fluoroscopic visualization. The images were obtained with the patient standing and horizontal.. Patient drank medium density barium through a straw in the semi-prone position. 72 fluoroscopic cine loop images. 13 static fluoroscopic images. Total fluoroscopy time was 3.9 minutes.. DAP: 36.9 Gy-cm2... 182.1 mGy dose. FINDINGS: Electronic Development Technician fluoroscopy image of the mouth and upper mediastinum and chest unremarkable. Single pacing lead in the right ventricle. Patient unable to swallow barium pill. Minimal delay in swallowing. Minimal laryngeal penetration, not seen real-time fluoroscopy but indicated on these images. Patient did not cough. Primary peristaltic wave within 10 cm above the-esophageal junction. Secondary and tertiary contractions. Delayed passage of the contrast through the junction. Luminal narrowing approximately 6 cm above the junction. Small sliding hiatal hernia. No significant gastroesophageal reflux. Stomach well-distended with gas and contrast material with no intrinsic lesions and no mass effect. No abnormal distended with gas and contrast material with 2 diverticula in the second segment, and a smaller diverticula in the proximal jejunum. No mass effect. IMPRESSION: 1. No delay in swallowing. Laryngeal penetration silent, without sin aspiration, standard barium consistency. No obstruction. Consider modified barium swallow evaluation. 2. Almost complete primary peristaltic wave with distal secondary and tertiary contractions. Small sliding hiatal hernia. Minimal narrowing may represent early Schatzki's ring. No significant gaseous esophageal reflux. 3. Stomach otherwise unremarkable. 2 duodenal diverticula and a small diverticula in the proximal jejunum. No complications. Electronically signed by: Milo Ortega MD 04/26/2019 10:58 AM COMPRESSOR ENGINEER
== END ==
LOC: RAD 08:53
DX: I27.0 Primary pulmonary hypertension (principal); J44.9 Chronic obstructive pulmonary disease, unspecified; R13.12 Dysphagia, oropharyngeal phase; K74.0 Hepatic fibrosis; Z79.01 Long term (current) use of anticoagulants; Z86.010 Personal history of colon polyps

== ENCOUNTER → 2019-09-21 | Outpatient (CLI) | payer MEDICARE | LOC: GMAM 11:48 | PROVIDERS: ATTEND Family Medicine | DX: I50.20 Unspecified systolic (congestive) heart failure (principal); E11.9 Type 2 diabetes mellitus without complications ==

== ENCOUNTER → 2019-09-23 | Outpatient (CLI) | payer MEDICARE | LOC: GMAM 11:23 | PROVIDERS: ATTEND Family Medicine | DX: D64.9 Anemia, unspecified (principal); I50.20 Unspecified systolic (congestive) heart failure; J44.1 Chronic obstructive pulmonary disease with (acute) exacerbation; Z79.899 Other long term (current) drug therapy ==

== ENCOUNTER → 2019-12-12 | Outpatient (CLI) | payer MEDICARE | LOC: GMAM 14:12 | PROVIDERS: ATTEND Family Medicine | DX: D64.9 Anemia, unspecified (principal) ==

== ENCOUNTER → 2020-01-09 | Outpatient (CLI) | payer MEDICARE | LOC: GMAM 12:05 | PROVIDERS: ATTEND Family Medicine | DX: E03.9 Hypothyroidism, unspecified (principal); Z79.899 Other long term (current) drug therapy; I10 Essential (primary) hypertension ==

== ENCOUNTER → 2020-01-13 | Outpatient (CLI) | payer MEDICARE | LOC: YCHH 11:17 | PROVIDERS: ATTEND Family Medicine | DX: I48.0 Paroxysmal atrial fibrillation (principal); I49.9 Cardiac arrhythmia, unspecified; M10.9 Gout, unspecified ==

== ENCOUNTER → 2020-03-14 | Outpatient (CLI) | payer MEDICARE | LOC: GMAM 14:06 | PROVIDERS: ATTEND Family Medicine | DX: R14.0 Abdominal distension (gaseous) (principal) ==

== ENCOUNTER → 2020-03-29 | Outpatient (CLI) | payer MEDICARE | LOC: GMAM 11:07 | PROVIDERS: ATTEND Family Medicine | DX: Z79.899 Other long term (current) drug therapy (principal); J18.9 Pneumonia, unspecified organism ==

== ENCOUNTER → 2020-05-04 | Outpatient (CLI) | payer MEDICARE ==
--- NOTE | 2020-05-07 08:44 | CT ---
EXAM DESCRIPTION: Chest w/o Contrast CLINICAL HISTORY: 84 years, Male, COPD COMPARISON: Chest radiograph 06/26/2017. CT abdomen and pelvis 01/23/2020, 04/01/2017 TECHNIQUE: Thin-section noncontrast axial CT images are obtained. Reconstructed MPR images are created and reviewed as well. No intravenous contrast. FINDINGS: Background moderate pulmonary emphysema. Septal and intralobular thickening and fluid within the fissures are consistent with bilateral interstitial pulmonary edema. Trace right pleural effusion. Superimposed multifocal subsolid nodular opacities within the right lung is suspicious for an atypical pneumonia. Airspace infiltrates also noted along the perihilar and paramediastinal regions extending into the right upper lobe. No pneumothorax. Left lower lobe bulla with mild partially calcified nodular thickening along the periphery is unchanged since 2017. Cardiomegaly with left ventricular and biatrial enlargement. Trace pericardial effusion. Scattered multivessel coronary arterial calcifications. Moderate atherosclerotic disease affects the aorta and its branches. . No mediastinal, hilar, or axillary lymphadenopathy. The trachea and proximal bronchi are patent. Tracheobronchial calcifications. Left chest wall pacemaker lead terminates within the right atrium. No acute osseous abnormality. No suspicious osseous lesion. Multilevel degenerative changes of spine. Partially visualized upper abdomen is unremarkable. IMPRESSION: 1. Background pulmonary emphysema. Mild bilateral interstitial pulmonary edema with trace right pleural effusion. 2. Right lung multifocal nodular airspace opacities are concerning for superimposed atypical pneumonia. Follow-up is recommended to document resolution. 3. Other findings as above. This exam was performed according to our departmental dose-optimization program, which includes automated exposure control, adjustment of the mA and/or kV according to patient size and/or use of iterative reconstruction technique. Electronically signed by: Markus Brice DO 05/07/2020 8:42 AM [facility]
== END ==
LOC: CT 12:12
PROVIDERS: ATTEND Family Medicine
DX: J44.1 Chronic obstructive pulmonary disease with (acute) exacerbation (principal); J81.1 Chronic pulmonary edema; J90 Pleural effusion, not elsewhere classified; R91.8 Other nonspecific abnormal finding of lung field; I51.7 Cardiomegaly; I31.3 Pericardial effusion (noninflammatory); I70.0 Atherosclerosis of aorta